=== PATIENT | male | born 1955 | race Caucasian/White ===

== ENCOUNTER 2016-10-19 19:41 | Emergency (ER) | payer BC ==
[~2016-10-19] VITALS: Ht 180.3 cm; Wt 95.0 kg
[~2016-10-19 19:41] MED LIST: ATOR10TA88 PO; LEVO112T18 PO
[2016-10-19 19:42] VITALS: TEMP 36.8; Ht 180.3 cm; Wt 95.0 kg
[2016-10-19] MEDS ORDERED: ACETAMINOPHEN 500 MG TAB PO STA (19:53)
[2016-10-19] MEDS ORDERED: SODIUM CHLORIDE 0.9% 1000ML 1,000 ML IV STA (19:53)
--- NOTE | 2016-10-19 20:05 | EMERGENCY ROOM VISIT NOTE ---
History Report prepared by Larisaiberis: Sherlyn Gregory Under the Supervision of: Dr. Nayan Desir M.D. First contact with patient: 19:49 Chief Complaint: BACK PAIN Stated Complaint: BACK PAIN FROM FALL History of Present Illness The patient is a 61 year old male who presents to the Emergency Room with complaints of worsening back pain for the past 2 days. He is accompanied by his . He reports he was on a latter 2 days ago while painting when he slipped on tape, and fell off, landing against a 6 inch long banister in a stairwell, and then rolling onto the floor. He thinks he fell about 4 feet during his final fall and injured the lower right side of his back and flank area. His was able to help him get up after the incident and he iced his back, then felt good enough to keep painting. He has been taking Ibuprofen for his pain as needed. The patient does admit to some pain with inspiration. He denies any recent hematuria. Earlier today, he was trying to pick something up, and his pain worsened, so he came to the ED. Movement worsens his discomfort. He denies any difficulties urinating or incontinence of bowel or bladder. He denies any neck pain or abdominal pain. He has experienced no swelling to his legs, but does have a bruise on one of his legs from the fall, he cannot remember which. Source of History: patient Onset: 2 days HEAVY REPAIRER Position: back (right lower back) Timing: worsening Modifying Factors (Worsening): movement Modifying Factors (Relieving): ibuprofen Associated Symptoms: No neck pain, No abdominal pain, No urinary symptoms Review of Systems See HPI for pertinent positives and negatives. A total of ten systems were reviewed and were otherwise negative. Past Medical & Surgical Medical Problems: (1) Hyperlipidemia (2) Hypothyroidism Surgical Problems: (1) History of knee surgery (2) Hx of inguinal hernia surgery Social History Smoking Status: Never Smoker Alcohol Use: occasionally Drug Use: none Marital Status: Housing Status: lives with family Occupation Status: employed Current/Historical Medications Scheduled Levothyroxine Sodium (Levothyroxine Sodium), 150 MCG PO DAILY Scheduled PRN Ibuprofen (Ibuprofen), 200 MG PO UD PRN for Pain Ibuprofen (Ibuprofen), 600 MG PO TID PRN for Pain Allergies Coded Allergies: No Known Allergies (Verified Allergy, Unknown, 11/06/04) Physical Exam Vital Signs Date Time Temp Pulse Resp B/P (MAP) Pulse Ox O2 Delivery O2 Flow Rate FiO2 10/20/16 00:22 53 18 156/87 97 10/19/16 22:04 56 20 139/82 96 Room Air 10/19/16 19:42 36.8 64 16 157/89 96 Room Air Physical Exam GENERAL: Awake, alert, well-appearing, in no distress HENT: Normocephalic, atraumatic. Oropharynx unremarkable. EYES: Normal conjunctiva. Sclera non-icteric. NECK: Supple. No nuchal rigidity. FROM. No JVD. RESPIRATORY: Clear to auscultation. CARDIAC: Regular rate, normal rhythm. Extremities warm and well perfused. Pulses equal. ABDOMEN: Soft, non-distended. No tenderness to palpation. No rebound or guarding. No masses. RECTAL: Deferred. MUSCULOSKELETAL: Palpation of right anterior chest wall reproduces posterior pain. The back is symmetrical on inspection without obvious abnormality. Right sided CVA and flank tenderness with ecchymosis and hematoma. No joint edema. LOWER EXTREMITIES: Calves are equal size bilaterally and non-tender. No edema. No discoloration. NEURO: Normal sensorium. No sensory or motor deficits noted. SKIN: No rash or jaundice noted. Medical Decision & Procedures ER Provider Diagnostic Interpretation: Radiology results as stated below per my review and radiologist interpretation: CT CHEST With Contrast: No pneumothorax. Lungs are clear aside from subsegmental atelectasis at lung bases.. No pleural effusions. CV structures are unremarkable. Osseous structures are intact. CT ABDOMEN & PELVIS: No free air. No free fluid. No evidence of solid organ injury. No pelvic or femoral neck fractures. Prostate focally invaginates into the base the bladder. Mild increased density in right posterior lateral abdominal wall fat, compatible with contusional injury. CT L SPINE: No acute fracture or subluxation. Mild degenerative changes. Bridging osteophytes of right sacroiliac joint. Radiologist: Omari Chery MD Laboratory Results 10/19/16 20:25 Red Blood Count 4.87, Mean Corpuscular Volume 93.2, Mean Corpuscular Hemoglobin 31.0, Mean Corpuscular Hemoglobin Concent 33.3, Mean Platelet Volume 9.1, Neutrophils (%) (Auto) 68.1, Lymphocytes (%) (Auto) 16.3, Monocytes (%) (Auto) 13.4, Eosinophils (%) (Auto) 1.7, Basophils (%) (Auto) 0.4, Neutrophils # (Auto ) 5.21, Lymphocytes # (Auto) 1.25, Monocytes # (Auto) 1.03, Eosinophils # (Auto ) 0.13, Basophils # (Auto) 0.03 10/19/16 20:25 Test 10/19/16 20:25 10/19/16 22:05 White Blood Count 7.66 K/uL (4.8-10.8) Red Blood Count 4.87 M/uL (4.7-6.1) Hemoglobin 15.1 g/dL (14.0-18.0) Hematocrit 45.4 % (42-52) Mean Corpuscular Volume 93.2 fL (80-100) Mean Corpuscular Hemoglobin 31.0 pg (25-34) Mean Corpuscular Hemoglobin Concent 33.3 g/dl (32-36) Platelet Count 243 K/uL (130-400) Mean Platelet Volume 9.1 fL (7.4-10.4) Neutrophils (%) (Auto) 68.1 % Lymphocytes (%) (Auto) 16.3 % Monocytes (%) (Auto) 13.4 % Eosinophils (%) (Auto) 1.7 % Basophils (%) (Auto) 0.4 % Neutrophils # (Auto) 5.21 K/uL (1.4-6.5) Lymphocytes # (Auto) 1.25 K/uL (1.2-3.4) Monocytes # (Auto) 1.03 K/uL (0.11-0.59) Eosinophils # (Auto) 0.13 K/uL (0-0.5) Basophils # (Auto) 0.03 K/uL (0-0.2) RDW Standard Deviation 45.3 fL (36.4-46.3) RDW Coefficient of Variation 13.3 % (11.5-14.5) Immature Granulocyte % (Auto) 0.1 % Immature Granulocyte # (Auto) 0.01 K/uL (0.00-0.02) Anion Gap 7.0 mmol/L (3-11) Est Creatinine Clear Calc Drug Dose 68.4 ml/min Estimated GFR () 67.3 Estimated GFR (Non- 58.1 BUN/Creatinine Ratio 15.0 (10-20) Calcium Level 9.4 mg/dl (8.5-10.1) Urine Color YELLOW Urine Appearance CLOUDY (CLEAR) Urine pH 5.5 (4.5-7.5) Urine Specific [place] 1.013 (1.000-1.030) Urine Protein NEG (NEG) Urine Glucose (UA) NEG (NEG) Urine Ketones NEG (NEG) Urine Occult Blood NEG (NEG) Urine Nitrite NEG (NEG) Urine Bilirubin NEG (NEG) Urine Urobilinogen NEG (NEG) Urine Leukocyte Esterase NEG (NEG) Urine WBC (Auto) 1-5 /hpf (0-5) Urine RBC (Auto) 0-4 /hpf (0-4) Urine Hyaline Casts (Auto) 0 /lpf (0-5) Urine Epithelial Cells (Auto) 0-5 /lpf (0-5) Urine Bacteria (Auto) NEG (NEG) Laboratory results reviewed by me Medications Administered Medications (Trade) Dose Ordered Sig/Kay Route Start Time Stop Time Status Last Admin Dose Admin Sodium Chloride 1,000 ml @ 999 mls/hr Q1H1M STAT IV 10/19/16 19:53 10/19/16 20:53 DC 10/19/16 20:23 999 MLS/HR Acetaminophen (Tylenol Tab) 1,000 mg NOW STAT PO 10/19/16 19:53 10/19/16 20:03 DC 10/19/16 20:23 1,000 MG Oxycodone HCl (Roxicodone Immediate Rel Tab) 5 mg NOW STAT PO 10/19/16 21:56 10/19/16 21:57 DC 10/19/16 22:05 5 MG ED Course 1950: The patient was evaluated in room B6. A complete history and physical exam was performed. 1952: Acetaminophen 1000 mg PO, NSS 1000 ml @ 999 mls/hr IV. 2155: Oxycodone HCl 5 mg PO. 2199: Nursing informed me the patient was unable to make it to CT scan because of pain. 0005: I reevaluated the patient. He is feeling better. I discussed his results and discharge instructions and he verbalized complete understanding and agreement. Medical Decision I reviewed the patient's past medical history, medications, and the nursing notes as described above. The differential diagnoses considered include multiple rib fractures, pulmonary contusion, renal contusion, retroperitoneal hematoma, soft tissue injury, contusion or hematoma. Patient is a 61-year-old gentleman presents emergency Department with right lower back and flank pain with bruising after a fall 2 days ago from a ladder onto a rail per history of present illness. I will patient appears uncomfortable but in no acute distress. He is afebrile with stable vital signs. Exam the patient has ecchymosis and hematoma to the right flank with tenderness to palpation throughout the right posterior ribs and CVA. Additionally palpation of the right anterior chest wall reproduces posterior pain concerning for rib fractures. Additionally while patient denies any hematuria location of hematoma could be concerning for renal injury as well. Thus we will evaluate with CT scan and labs. Otherwise no lower extremity weakness denies urinary retention or bowel incontinence. Labs unremarkable including a UA negative for hematuria. Stat read preliminary reads of CT scan do not show any fractures or solid organ injury, rather showed soft tissue contusion to the right flank. Findings discussed with patient and plan for analgesia as well as incentive spirometer. Patient agreeable with plan and was discharged per instructions. Medication Reconcilliation Current Medication List: was personally reviewed by me Blood Pressure Screening Patient's blood pressure: Elevated blood pressure Blood pressure disposition: Elevated BP felt to be situational Impression Primary Impression: Contusion Scribe Attestation The scribe's documentation has been prepared under my direction and personally reviewed by me in its entirety. I confirm that the note above accurately reflects all work, treatment, procedures, and medical decision making performed by me. Departure Information Dispostion Home / Self-Care Referrals No Doctor, Assigned (PCP) Patient Instructions ED Contusion Back, My [facility] Additional Instructions Please follow up with your primary care physician in the next 1-3 days for reevaluation. Otherwise, your exam, lab results, and CT scan did not show signs of an emergent condition at this time. Take ibuprofen and Tylenol as needed for pain. Heating pad at 20 minute intervals for additional muscle relaxation. Incentive spirometer 10 x per hour throughout the day. Return to the emergency department for worsening symptoms as described in the accompanying instructions. Work Instructions Specific Date: 10/24/2016
[2016-10-19] MEDS ORDERED: MTR/600 PO (20:13)
[2016-10-19] MEDS ORDERED: LEVO150T9 PO (20:13)
[2016-10-19] MEDS ORDERED: IBUP-1105 PO (20:13)
[2016-10-19] MEDS ORDERED: OPTIRAY 320 IV PRN (20:15)
[2016-10-19 20:35] LABS: BASO % 0.4 %; BASO ABS # 0.03 K/uL (0-0.2); COMPLETE YES; EOS % 1.7 %; HEMATOCRIT 45.4 % (42-52); IG% 0.1 %; LYMPH % 16.3 %; LYMPH ABS # 1.25 K/uL (1.2-3.4); MEAN CELL VOLUME 93.2 fL (80-100); MEAN CORPUSCULAR HGB CONC 33.3 g/dl (32-36); MEAN PLATELET VOLUME 9.1 fL (7.4-10.4); MONO % 13.4 %; NEUT % 68.1 %; PLATELET COUNT 243 K/uL (130-400); RED BLOOD COUNT 4.87 M/uL (4.7-6.1); WHITE BLOOD COUNT 7.66 K/uL (4.8-10.8)
[2016-10-19 20:51] LABS: CALCIUM 9.4 mg/dl (8.5-10.1); CREATININE 1.3 mg/dl (0.60-1.40)
[2016-10-19] MEDS ORDERED: OXYCODONE HCL IR 5 MG TAB (IMMEDIATE RELEASE) PO STA (21:56)
[2016-10-19 22:22] LABS: URINE APPEARANCE CLOUDY (CLEAR); URINE BILIRUBIN NEG (NEG); URINE COLOR YELLOW; URINE EPITHELIAL CELL AUTO 0-5 /lpf (0-5); URINE NITRITE NEG (NEG); URINE PH 5.5 (4.5-7.5); URINE SPECIFIC GRAVITY 1.013 (1.000-1.030); UROBILINOGEN NEG (NEG); ZZUR CULT IF INDIC CLEAN CATCH NO
[2016-10-19 22:28] LABS: MANUAL MICROSCOPIC REQUIRED? NO; REVIEW REQ? NO
[2016-10-20 00:22] VITALS: BP 156/87; PULSE 53; O2SAT 97
--- NOTE | 2016-10-20 07:17 | DIAGNOSTIC IMAGING REPORT ---
CT SCAN OF THE LUMBAR SPINE WITHOUT IV CONTRAST CLINICAL HISTORY: Fall with back pain. COMPARISON STUDY: No priors. TECHNIQUE: CT scan of the lumbar spine is performed from the lower thoracic spine to the sacrum. Images are reviewed in the axial, sagittal, and coronal planes. IV contrast was not administered specifically for this examination. There is IV contrast present from the concurrently performed abdominal CT. A dose lowering technique was utilized adhering to the principles of ALARA. CT DOSE: 1063.09 mGy.cm FINDINGS: The skeletal structures are well mineralized. There is no evidence of fracture or malalignment involving the lumbar spine. Vertebral body height and alignment are maintained. The transverse and spinous processes are intact. There is no evidence of spondylolysis. No lytic or blastic lesions are seen. Tiny anterior osteophytes are seen throughout. The intervertebral disc spaces are preserved. There is no evidence of large disc herniation or significant acquired compromise of the central canal as seen by CT. The visualized sacrum and bony pelvis appear intact. Mild degenerative change and spurring is noted at the sacroiliac joints. There is a nondistracted right posterior 11th rib fracture. The paraspinous soft tissues are within normal limits. There is mild atherosclerotic calcification of the abdominal aorta. No retroperitoneal lymphadenopathy is seen. IMPRESSION: 1. There is no evidence of fracture or subluxation involving the lumbar spine. 2. There is an acute nondistracted right posterior 11th rib fracture Electronically signed by: Solo Murphy M.D. 10/20/2016 7:15 AM Dictated Date/Time: 10/20/2016 7:11 AM
--- NOTE | 2016-10-20 07:34 | DIAGNOSTIC IMAGING REPORT ---
CT OF THE CHEST WITH IV CONTRAST CLINICAL HISTORY: Fall - right flank pain/hematoma. COMPARISON STUDY: No previous studies for comparison. TECHNIQUE: Following IV administration of 92 mL of Optiray-320, helical axial images of the chest were obtained. Sagittal and coronal reconstructions were viewed as well as maximal intensity projections on an independent 3-D workstation. A dose lowering technique was utilized adhering to the principles of ALARA. FINDINGS: There are no findings to suggest traumatic injury to the thoracic aorta. Size of the heart is normal. There is no pericardial effusion. No enlarged thoracic lymph nodes are present. Central airways are patent. No pneumothorax or pulmonary contusion is present. There are acute nondisplaced fractures of the posterior right 11th and 12th ribs. Groundglass opacities reflect atelectasis. There is no acute thoracic spine fracture. IMPRESSION: 1. Acute nondisplaced fractures of the right 11th and 12th ribs. No pneumothorax. 2. No additional traumatic findings within the chest. Electronically signed by: Liban Cruz M.D. 10/20/2016 7:33 AM Dictated Date/Time: 10/20/2016 6:47 AM
--- NOTE | 2016-10-20 07:37 | DIAGNOSTIC IMAGING REPORT ---
ABDOMEN AND PELVIS CT WITH IV CONTRAST CT DOSE: HISTORY: Fall - right flank pain/hematoma TECHNIQUE: Multiaxial CT images of the abdomen and pelvis were performed following the use of intravenous contrast. A dose lowering technique was utilized adhering to the principles of ALARA. COMPARISON STUDY: None. FINDINGS: Mild dependent changes seen at the lung bases. No pneumoperitoneum. No pneumatosis. Nondisplaced right posterior 11th and 12th rib fractures. Subcutaneous fat stranding within the right flank consistent with a soft tissue contusion. No evidence for hematoma at this time. A few colonic diverticula. No bowel wall thickening or obstruction. Normal appendix. No retroperitoneal hematoma or lymphadenopathy. Bladder is unremarkable. Prostate gland protrudes into the bladder base. The liver, spleen, adrenal glands, pancreas, and right kidney are unremarkable. Small hypodensity within the lower pole the left kidney may represent an area of scarring. No hydronephrosis. IMPRESSION: 1. Nondisplaced right posterior 11th and 12th rib fractures. 2. Otherwise, no acute intra-abdominal abnormality. Electronically signed by: Dom Badillo M.D. 10/20/2016 7:36 AM Dictated Date/Time: 10/20/2016 7:28 AM
== END 2016-10-20 00:26 | disposition home or self-care (01) ==
LOC: C.EDB 19:43
DX: S30.0XXA Contusion of lower back and pelvis, initial encounter (principal); S30.1XXA Contusion of abdominal wall, initial encounter; W01.0XXA Fall on same level from slipping, tripping and stumbling without subsequent striking against object, initial encounter; E78.5 Hyperlipidemia, unspecified; E03.9 Hypothyroidism, unspecified; Z96.659 Presence of unspecified artificial knee joint; Z79.899 Other long term (current) drug therapy

== ENCOUNTER 2021-09-28 16:05 | Inpatient (IN) ==
[2021-09-28] MEDS ORDERED: SODIUM CHLORIDE 0.9% 1000ML 1,000 ML IV ONE (16:28)
--- NOTE | 2021-09-28 16:30 | Emergency Department Note ---
Impression & Plan Acute kidney injury, Hydronephrosis, Abdominal pain ED Provider Note NAME: TWYLA NAVAS AGE: 66 SEX: M : 1955 ARRIVES VIA: Walk-In INFORMANT: Patient ED PROVIDER(S): Link Hughes DO CHIEF COMPLAINT: abdominal pain HPI: Patient is a 66-year-old male who presents to the ER from the left lower quadrant abdominal pain. He notes that he has been having this for the past 3 months. Had nausea with it today as he had very severe pain. Lasted for about 20 minutes. He became very diaphoretic and felt like he was going to pass out. No chest pain or shortness of breath. No dysuria, urgency, or frequency. Pain is worse with eating. No other exacerbating or remitting factors. Normally a crampy sharp pain. Pain is currently 0 out of 10. Only previous abdominal surgery includes placement of mesh ROS: See above HPI for pertinent positives & negatives. A total of 10 systems reviewed and were otherwise negative. PAST MEDICAL HISTORY:See Below PAST SURGICAL HISTORY:See Below FAMILY HISTORY:See Below SOCIAL HISTORY:See Below HOME MEDICATIONS:See Below ALLERGIES:See Below VITALS:See Below PHYSICAL EXAMINATION: GENERAL: Sitting up in bed, alert, well appearing, well nourished, no distress, non-toxic EYE EXAM: normal conjunctiva. OROPHARYNX: no exudate, no erythema, lips, buccal mucosa, and tongue normal and mucous membranes are moist NECK: supple, no nuchal rigidity, no adenopathy, non-tender LUNGS: Clear to auscultation. Normal chest wall mechanics HEART: no murmurs, S1 normal and S2 normal ABDOMEN: abdomen soft, non-tender, normo-active bowel sounds, no masses, no rebound or guarding. UPPER EXTREMITIES: upper extremities are grossly normal. LOWER EXTREMITIES: No pitting edema. NEURO EXAM: Normal sensorium, cranial nerves II-XII grossly intact, normal speech, no gross weakness of arms, no gross weakness of legs. MEDICAL DECISION MAKING: Patient is a 66-year-old male who presents ER for the above-stated complaint. IV was established blood was obtained. Labs show no significant leukocytosis or anemia. BMP with a creatinine of 4.6 up from a baseline of 1. CO2 slightly low at 20 which I do favor is likely secondary to uremia. LFTs bilirubin and lipase was unremarkable. UA with white cells and leuks but contaminated with epithelial cells. COVID was negative. Conner was inserted and he had a large amount of urine output. CT abdomen pelvis was unremarkable. Was given IV fluids discussed with hospitalist admitted for acute kidney injury secondary to urinary retention. Triage Nursing notes reviewed. Limited review of prior medical records performed Vital Signs: reviewed and remarkable for hypertensive, bradycardic Differential diagnosis: Differential diagnoses includes but is not limited to gastritis, peptic ulcer disease, GERD, gallbladder disease, pancreatitis, small bowel obstruction, acute coronary syndrome, pericarditis, ischemic bowel, irritable bowel disease, irritable bowel syndrome, appendicitis, diverticulitis, malignancy, hernia, urinary tract infection, torsion, perforation, trauma, infectious. ER treatment provided: See below Diagnostics interpreted by me: ECG: none Cardiac Monitoring: An order was placed for continuous cardiac monitoring. The monitor shows a rate of 68 with sinus rhythm. Laboratory studies: As stated above and show below. Imaging studies: CT Abdomen pelvis as described above Consultation(s): To the hospitalist for further evaluation Procedures: none Critical Care: None Past Med/Surg History Medical History Hyperlipidemia Hypothyroidism Surgical History H/O inguinal hernia repair Family History Other Heart disease Stroke Social History Smoking Status: Never smoker Hx Alcohol Use: No Hx Substance Use: No Preferred Language: Maori Feels Safe at Home: Yes Allergies Allergies Allergy/AdvReac Type Severity Reaction Status Date / Time No Known Allergies Allergy Unknown Verified 11/06/04 19:57 Home Meds Home Medications Medication Instructions Recorded Confirmed levothyroxine 137 mcg tablet 137 mcg PO DAILY 09/28/21 09/28/21 Results & Data (ED) Vital Signs Vital Signs - 24 hr 09/28/21 16:08 09/28/21 16:05 09/28/21 16:19 Temperature 36.1 C L Temperature Source Temporal Artery Scan Pulse Rate 48 L 49 L Pulse Rate [Apical] 52 L Pulse Rhythm Regular Pulse Strength Normal Respiratory Rate 16 16 Respiratory Effort / Characteristics Non-Labored Spontaneous Respiratory Depth Normal Blood Pressure 186/79 H Blood Pressure [Left Arm] 169/101 H Blood Pressure Mean 114 Blood Pressure Mean [Left Arm] 123 Pulse Oximetry 100 97 97 Oxygen Delivery Method Room Air Sepsis Recent Fever Within 48 Hours No Sepsis New/Unexplained Change in Mental Status No Sepsis Action Taken by Nursing No Action Required 09/28/21 17:00 09/28/21 19:01 Temperature Temperature Source Pulse Rate 50 L Pulse Rate [Apical] 63 Pulse Rhythm Pulse Strength Respiratory Rate 14 18 Respiratory Effort / Characteristics Respiratory Depth Blood Pressure 177/74 H Blood Pressure [Left Arm] 185/106 H Blood Pressure Mean 108 Blood Pressure Mean [Left Arm] 132 Pulse Oximetry 97 99 Oxygen Delivery Method Room Air Sepsis Recent Fever Within 48 Hours Sepsis New/Unexplained Change in Mental Status Sepsis Action Taken by Nursing Laboratory Data Result diagrams: 09/28/21 16:24 09/28/21 16:24 Lab Results 09/28/21 09/28/21 09/28/21 Range/Units 16:24 16:24 16:34 WBC 5.04 (4.8-10.8) K/ul RBC 3.91 L (4.63-6.08) M/uL Hgb 11.5 L (14.0-18.0) g/dl Hct 37.5 L (40.1-51.0) % MCV 95.9 (80.0-100.0) fL MCH 29.4 (25.0-34.0) pg MCHC 30.7 L (32.0-36.0) g/dL RDW Std Deviation 50.4 H (36.4-46.3) fL RDW Coeff of Shine 14.3 (11.5-14.5) % Plt Count 265 (130-400) K/uL MPV 9.0 L (9.4-12.4) fL Immature Gran % (Auto) 0.4 % Neut % (Auto) 59.3 % Lymph % (Auto) 25.0 % [place] % (Auto) 11.9 % Eos % (Auto) 2.6 % Baso % (Auto) 0.8 % Neut # (Auto) 2.99 (1.4-6.5) K/uL Lymph # (Auto) 1.26 (1.2-3.4) K/uL [place] # (Auto) 0.60 (0.24-0.82) K/uL Eos # (Auto) 0.13 (0-0.50) K/uL Baso # (Auto) 0.04 (0-0.2) K/uL Immature Gran # (Auto) 0.02 (0.00-0.02) K/uL Sodium 139 (136-145) mmol/L Potassium 4.5 (3.5-5.1) mmol/L Chloride 111 H (98-107) mmol/L Carbon Dioxide 20 L (21-32) mmol/L Anion Gap 8 (3-11) BUN 62 H (6-23) mg/dl Creatinine 4.63 H* (0.6-1.4) mg/dl Est Cr Clr Drug Dosing 16.8 ml/min Est GFR ( Amer) 14.0 ml/min Est GFR (Non-Af Amer) 12.1 ml/min BUN/Creatinine Ratio 13.4 (10-20) Glucose 114 H (70-99(Fasting)) mg/dl Calcium 8.9 (8.5-10.1) mg/dl Total Bilirubin 0.5 (0.2-1.0) mg/dl AST 16 (13-39) U/L ALT 9 (7-52) U/L Alkaline Phosphatase 45 (34-104) U/L Total Protein 7.7 (6.0-8.3) gm/dl Albumin 4.3 (3.4-5.0) gm/dl Globulin 3.4 (2.5-4.0) gm/dl Albumin/Globulin Ratio 1.3 (0.9-2) Lipase 56 (11-82) U/L Urine Color Yellow Urine Appearance Clear (Clear) Urine pH 5.5 (4.5-7.5) Ur Specific [place] 1.010 (1.000-1.030) Urine Protein Negative (Negative) Urine Glucose (UA) Negative (Negative) Urine Ketones Negative (Negative) Urine Blood Negative (Negative) Urine Nitrite Negative (Negative) Urine Bilirubin Negative (Negative) Urine Urobilinogen Negative (Negative) Ur Leukocyte Esterase 1+ H (Negative) Urine WBC (Auto) 10-30 H (0-5) /hpf Urine RBC (Auto) 0-4 (0-4) /hpf U Hyaline Cast (Auto) 1-5 (0-5) /lpf U Epithel Cells (Auto) 10-20 H (0-5) /lpf Urine Bacteria (Auto) Negative (Negative) SARS-CoV-2, RNA, NAAT (NEGATIVE) 09/28/21 Range/Units 19:35 WBC (4.8-10.8) K/ul RBC (4.63-6.08) M/uL Hgb (14.0-18.0) g/dl Hct (40.1-51.0) % MCV (80.0-100.0) fL MCH (25.0-34.0) pg MCHC (32.0-36.0) g/dL RDW Std Deviation (36.4-46.3) fL RDW Coeff of Shine (11.5-14.5) % Plt Count (130-400) K/uL MPV (9.4-12.4) fL Immature Gran % (Auto) % Neut % (Auto) % Lymph % (Auto) % [place] % (Auto) % Eos % (Auto) % Baso % (Auto) % Neut # (Auto) (1.4-6.5) K/uL Lymph # (Auto) (1.2-3.4) K/uL [place] # (Auto) (0.24-0.82) K/uL Eos # (Auto) (0-0.50) K/uL Baso # (Auto) (0-0.2) K/uL Immature Gran # (Auto) (0.00-0.02) K/uL Sodium (136-145) mmol/L Potassium (3.5-5.1) mmol/L Chloride (98-107) mmol/L Carbon Dioxide (21-32) mmol/L Anion Gap (3-11) BUN (6-23) mg/dl Creatinine (0.6-1.4) mg/dl Est Cr Clr Drug Dosing ml/min Est GFR ( Amer) ml/min Est GFR (Non-Af Amer) ml/min BUN/Creatinine Ratio (10-20) Glucose (70-99(Fasting)) mg/dl Calcium (8.5-10.1) mg/dl Total Bilirubin (0.2-1.0) mg/dl AST (13-39) U/L ALT (7-52) U/L Alkaline Phosphatase (34-104) U/L Total Protein (6.0-8.3) gm/dl Albumin (3.4-5.0) gm/dl Globulin (2.5-4.0) gm/dl Albumin/Globulin Ratio (0.9-2) Lipase (11-82) U/L Urine Color Urine Appearance (Clear) Urine pH (4.5-7.5) Ur Specific [place] (1.000-1.030) Urine Protein (Negative) Urine Glucose (UA) (Negative) Urine Ketones (Negative) Urine Blood (Negative) Urine Nitrite (Negative) Urine Bilirubin (Negative) Urine Urobilinogen (Negative) Ur Leukocyte Esterase (Negative) Urine WBC (Auto) (0-5) /hpf Urine RBC (Auto) (0-4) /hpf U Hyaline Cast (Auto) (0-5) /lpf U Epithel Cells (Auto) (0-5) /lpf Urine Bacteria (Auto) (Negative) SARS-CoV-2, RNA, NAAT NEGATIVE (NEGATIVE) Administered Medications Discontinued Medications Sodium Chloride (Nss 1000ml) 1,000 mls @ 999 mls/hr IV .[id number] ONE Stop: 09/28/21 17:28 Last Infusion: 09/28/21 17:49 Dose: 0 mls/hr Documented By: Admin: 09/28/21 16:47 Dose: 999 mls/hr Documented By: SUSAN Lorazepam (Lorazepam 1 Mg Tab) 1 mg SL NOW STA Stop: 09/28/21 18:31 Last Admin: 09/28/21 18:57 Dose: Not Given Documented By: SW Imaging Data Radiologist's Impression: Abdomen/Pelvis CT 09/28/21 17:26 CT abd pelvis wo con CLINICAL HISTORY: abd pain COMPARISON STUDY: 10/19/2016 CT DOSE: 414.78 mGy.cm TECHNIQUE: Standard CT of the Abdomen and Pelvis was performed without IV contrast. The patient did not receive oral contrast. A dose lowering technique was utilized adhering to the principles of ALARA. FINDINGS: Lung base: The lung bases are clear. Abdominal cavity: There is no evidence for abdominal mass, adenopathy or ascites. Liver: The liver is homogeneous in attenuation on these limited noncontrast im ages.. Spleen: The spleen is homogeneous in attenuation on these limited noncontrast images. Pancreas: The pancreas is homogeneous in attenuation on these limited noncontrast images. Gall Bladder: The gallbladder is well distended with no evidence for cholelithiasis, wall thickening or pericholecystic edema.. Adrenal glands: The adrenal glands are normal in size and attenuation on these limited noncontrast images. Kidneys: There is renal cortical atrophy present bilaterally. There is mild to moderate bilateral hydronephrosis and hydroureter with no evidence for renal or ureteral calculi. This most likely physiologic with distention of the urinary bladder present. Bowel: The bowel loops are normally placed within the abdomen and pelvis without evidence for dilatation or obstruction. There is no evidence for mass lesion. There is mild sigmoid diverticulosis without evidence for diverticulitis. There are no inflammatory changes present. There is no evidence for free air. There is a normal appendix in the right lower quadrant. Bladder: There is distention of the urinary bladder with no evidence for focal bladder wall thickening, calculus or diverticulum. : There is no evidence for pelvic mass or adenopathy. The prostate is mildly to moderately enlarged encroachment upon the floor the bladder. Vasculature: There is no evidence for focal aneurysmal dilatation of the abdominal aorta. Atherosclerotic calcification is present. Osseous structures: There is no acute osseous pathology. Degenerative changes are seen within the spine. IMPRESSION: 1. Bilateral renal cortical atrophy with mild to moderate hydronephrosis and hydroureter bilaterally. This is most likely chronic and physiologic in nature due to distention of the urinary bladder. There are no renal, ureteral or bladder calculi 2. No other evidence for acute intra-abdominal or pelvic abnormality on these limited noncontrast images. 3. Additional nonacute findings are delineated above. ACT 112: Negative or not required by law. Electronically signed by: Sharif Will M.D. 09/28/2021 6:05 PM Discharge Plan Visit Data Chief Complaint: Abdominal Pain Stated Complaint: LLQ ABDOM PAIN ED Provider: Link Hughes Discharge Problem: Acute kidney injury, Hydronephrosis, Abdominal pain Forms Stand Alone Forms: [employer] Prescriptions Prescriptions: No Action levothyroxine 137 mcg tablet 137 mcg PO DAILY Referrals Referrals: Amauri Oakes MD [Primary Care Provider] -
[2021-09-28 16:58] LABS: Basophils # (auto) 0.04 K/uL (0-0.2); Basophils % (auto) 0.8 %; Eosinophils # (auto) 0.13 K/uL (0-0.50); Eosinophils % (auto) 2.6 %; Hematocrit (blood only) 37.5 % (40.1-51.0); Hemoglobin 11.5 g/dl (14.0-18.0); Immature Granulocytes # (auto) 0.02 K/uL (0.00-0.02); Immature Granulocytes % (auto) 0.4 %; Lymphocytes # (auto) 1.26 K/uL (1.2-3.4); Mean Corpuscular Hemoglobin 29.4 pg (25.0-34.0); Mean Corpuscular Hgb Conc 30.7 g/dL (32.0-36.0); Mean Corpuscular Volume 95.9 fL (80.0-100.0); Monocytes % (auto) 11.9 %; Neutrophils # (auto) 2.99 K/uL (1.4-6.5); Neutrophils % (auto) 59.3 %; Platelet Count 265 K/uL (130-400); RDW Coefficient of Variation 14.3 % (11.5-14.5); RDW Standard Deviation 50.4 fL (36.4-46.3); Red Blood Count 3.91 M/uL (4.63-6.08); White Blood Count 5.04 K/ul (4.8-10.8)
[2021-09-28 17:05] LABS: Appearance Urine Clear (Clear); Bacteria Urine Automated Negative (Negative); Bilirubin Urine Negative (Negative); Blood Urine Negative (Negative); Color Urine Yellow; Glucose Urine UA Negative (Negative); Ketones Urine Negative (Negative); Leukocyte Esterase Urine 1+ (Negative); Nitrite Urine Negative (Negative); Protein Urine Negative (Negative); RBC Urine Automated 0-4 /hpf (0-4); Urobilinogen Urine Negative (Negative); pH Urine 5.5 (4.5-7.5)
[2021-09-28 17:26] LABS: Albumin Globulin Ratio 1.3 (0.9-2); Albumin Level 4.3 gm/dl (3.4-5.0); BUN Creatinine Ratio 13.4 (10-20); Bilirubin,Total 0.5 mg/dl (0.2-1.0); Calcium 8.9 mg/dl (8.5-10.1); Creatinine Clr Calc Pharmacy 16.8 ml/min; Est GFR (Non-African American) 12.1 ml/min; Globulin 3.4 gm/dl (2.5-4.0); Potassium 4.5 mmol/L (3.5-5.1); Total Protein 7.7 gm/dl (6.0-8.3)
--- NOTE | 2021-09-28 18:07 | CT Scan Report ---
CT abd pelvis wo con CLINICAL HISTORY: abd pain COMPARISON STUDY: 10/19/2016 CT DOSE: 414.78 mGy.cm TECHNIQUE: Standard CT of the Abdomen and Pelvis was performed without IV contrast. The patient did not receive oral contrast. A dose lowering technique was utilized adhering to the principles of JEFF Almazan FINDINGS: Lung base: The lung bases are clear. Abdominal cavity: There is no evidence for abdominal mass, adenopathy or ascites. Liver: The liver is homogeneous in attenuation on these limited noncontrast images.. Spleen: The spleen is homogeneous in attenuation on these limited noncontrast images. Pancreas: The pancreas is homogeneous in attenuation on these limited noncontrast images. Gall Bladder: The gallbladder is well distended with no evidence for cholelithiasis, wall thickening or pericholecystic edema.. Adrenal glands: The adrenal glands are normal in size and attenuation on these limited noncontrast im ages. Kidneys: There is renal cortical atrophy present bilaterally. There is mild to moderate bilateral hyd ronephrosis and hydroureter with no evidence for renal or ureteral calculi. This most likely physiolo gic with distention of the urinary bladder present. Bowel: The bowel loops are normally placed within the abdomen and pelvis without evidence for dilatat ion or obstruction. There is no evidence for mass lesion. There is mild sigmoid diverticulosis withou t evidence for diverticulitis. There are no inflammatory changes present. There is no evidence for fr ee air. There is a normal appendix in the right lower quadrant. Bladder: There is distention of the urinary bladder with no evidence for focal bladder wall thickenin g, calculus or diverticulum. : There is no evidence for pelvic mass or adenopathy. The prostate is mildly to moderately enlarged encroachment upon the floor the bladder. Vasculature: There is no evidence for focal aneurysmal dilatation of the abdominal aorta. Atheroscler otic calcification is present. Osseous structures: There is no acute osseous pathology. Degenerative changes are seen within the spi ne. IMPRESSION: 1. Bilateral renal cortical atrophy with mild to moderate hydronephrosis and hydroureter bilaterally. This is most likely chronic and physiologic in nature due to distention of the urinary bladder. Ther e are no renal, ureteral or bladder calculi 2. No other evidence for acute intra-abdominal or pelvic abnormality on these limited noncontrast faheem ges. 3. Additional nonacute findings are delineated above. ACT 112: Negative or not required by law. Electronically signed by: Sharif Will M.D. 09/28/2021 6:05 PM
[2021-09-28] MEDS ORDERED: LORazepam 1 MG TAB SL STA (18:30)
--- NOTE | 2021-09-28 18:57 | History & Physical Report ---
Date of Service September 28, 2021 Assessment & Plan (1) Acute kidney injury: (2) Hydronephrosis: (3) Abdominal pain: Plan: This is a 66-year-old male with PMH of hypothyroidism, hyperlipidemia, prediabetes, ZULMA and other medical problems listed below who presents with lower abdominal and groin pain over the past few days and was found to have FLORENTIN 2/[address] abd/pelvis with bilateral renal cortical atrophy with mild to moderate hydronephrosis and hydroureter bilaterally. This is most likely chronic and physiologic in nature due to distention of the urinary bladder. There are no renal, ureteral or bladder calculi Cr 4.63 (baseline ~1.3) FLORENTIN and hydronephrosis 2/2 bladder outlet obstruction from enlarged prostate gland Conner catheter in place, continue gentle IV fluids Per urology, may require urologic procedure such as a TURP once his renal function normalizes (4) Hypothyroidism: Plan: Continue levothyroxine (5) Hyperlipidemia: Plan: Diet controlled DVT Ppx: SCDs Code status: FULL PCP: [facility] Dispo: Admitted to med/tele Patient seen in collaboration with Dr. Arenas. Please see addendum. History of Present Illness Chief Complaint: Abdominal pain Primary Care Provider: Amauri Oakes MD This is a 66-year-old male with PMH of hypothyroidism, hyperlipidemia, prediabetes, ZULMA and other medical problems listed below who presents with lower abdominal and groin pain over the past few days. Endorses progressive pain in left lower abdomen radiating into groin that is exacerbated by movement and af ter eating. Thought he was having issues with the hernia and came to ED for further evaluation. He has had difficulty urinating over the past 1 to 2 years with increased frequency and urgency. Has never been seen by urologist. Endorses associated nausea with abdominal pain but no vomiting. Tried ibuprofen at home a few times without much relief. No fever, chills, congestion, headache, chest pain, shortness of breath, vomiting, dysuria, diarrhea or constipation. Only home medication patient is on is levothyroxine. PCP is Dr. Oakes. Allergies Allergy/AdvReac Type Severity Reaction Status Date / Time No Known Allergies Allergy Unknown Verified 11/06/04 19:57 Home Medications Medication Instructions Recorded Confirmed Type levothyroxine 137 mcg tablet 137 mcg PO DAILY 09/28/21 09/28/21 History Past Med/Surg History Medical History Hyperlipidemia Hypothyroidism Surgical History H/O inguinal hernia repair Family History Other Heart disease Stroke Social History Smoking Status: Never smoker Hx Alcohol Use: No Hx Substance Use: No Preferred Language: Somali Feels Safe at Home: Yes Review of Systems Review of Systems: At least ten systems reviewed and negative except as noted in the HPI. Physical Exam Physical Exam: General Appearance: WD/WN, vitals as above, NAD, sitting up in bed, pleasant, conversing easily Head: normocephalic, atraumatic Eyes: normal inspection, PERRL, conjunctivae normal, anicteric sclerae ENT: external ear and nose normal, oropharynx normal Neck: normal visual inspection, trachea midline, no thyromegaly Respiratory: normal respiratory effort, lungs clear to auscultation, no wheeze, rales, rhonchi. No accessory muscle use Cardiovascular: regular rate, rhythm, no murmur, normal peripheral pulses, no BLE edema. Vessels: no JVD Chest: normal inspection of chest Abdomen/GI: normal bowel sounds, soft,no hepatosplenomegaly : Conner catheter in place Extremities/Musculoskeletal: no cyanosis or clubbing, extremities motor strength 5/5 Neurologic: PERRL, EOMI, accommodation nl, no face palsy, no dysarthria, CN's II-XI intact bilaterally and moves all extremities Psychiatric: A+Ox3, euthymic affect Skin: no rashes, normal color, warm/dry Results & Data Results & Data ([facility]) Vital Signs (Past 12 Hours) Vital Signs Temp Pulse Pulse Resp BP BP Pulse Ox 09/28/21 17:00 50 L 14 177/74 H 97 09/28/21 16:19 49 L 97 09/28/21 16:05 52 L 16 169/101 H 97 09/28/21 16:08 36.1 C L 48 L 16 186/79 H 100 O2 Del Method 09/28/21 17:00 09/28/21 16:19 09/28/21 16:05 09/28/21 16:08 Room Air Laboratory Results Short CBC 09/28/21 Range/Units 16:24 WBC 5.04 (4.8-10.8) K/ul Hgb 11.5 L (14.0-18.0) g/dl Hct 37.5 L (40.1-51.0) % Plt Count 265 (130-400) K/uL BMP 09/28/21 16:24 Sodium 139 Potassium 4.5 Chloride 111 H Carbon Dioxide 20 L BUN 62 H Creatinine 4.63 H* Glucose 114 H Calcium 8.9 Liver Function 09/28/21 Range/Units 16:24 Total Bilirubin 0.5 (0.2-1.0) mg/dl AST 16 (13-39) U/L ALT 9 (7-52) U/L Alkaline Phosphatase 45 (34-104) U/L Albumin 4.3 (3.4-5.0) gm/dl Urine 09/28/21 Range/Units 16:34 Urine Color Yellow Urine Appearance Clear (Clear) Urine pH 5.5 (4.5-7.5) Ur Specific [place] 1.010 (1.000-1.030) Urine Protein Negative (Negative) Urine Glucose (UA) Negative (Negative) Diagnostic Findings Abdomen/Pelvis CT 09/28/21 17:26 CT abd pelvis wo con CLINICAL HISTORY: abd pain COMPARISON STUDY: 10/19/2016 CT DOSE: 414.78 mGy.cm TECHNIQUE: Standard CT of the Abdomen and Pelvis was performed without IV contrast. The patient did not receive oral contrast. A dose lowering technique was utilized adhering to the principles of ALARA. FINDINGS: Lung base: The lung bases are clear. Abdominal cavity: There is no evidence for abdominal mass, adenopathy or ascites. Liver: The liver is homogeneous in attenuation on these limited noncontrast images.. Spleen: The spleen is homogeneous in attenuation on these limited noncontrast images. Pancreas: The pancreas is homogeneous in attenuation on these limited noncontrast images. Gall Bladder: The gallbladder is well distended with no evidence for cholelithiasis, wall thickening or pericholecystic edema.. Adrenal glands: The adrenal glands are normal in size and attenuation on these limited noncontrast images. Kidneys: There is renal cortical atrophy present bilaterally. There is mild to moderate bilateral hydronephrosis and hydroureter with no evidence for renal or ureteral calculi. This most likely physiologic with distention of the urinary bladder present. Bowel: The bowel loops are normally placed within the abdomen and pelvis without evidence for dilatation or obstruction. There is no evidence for mass lesion. There is mild sigmoid diverticulosis without evidence for diverticulitis. There are no inflammatory changes present. There is no evidence for free air. There is a normal appendix in the right lower quadrant. Bladder: There is distention of the urinary bladder with no evidence for focal bladder wall thickening, calculus or diverticulum. : There is no evidence for pelvic mass or adenopathy. The prostate is mildly to moderately enlarged encroachment upon the floor the bladder. Vasculature: There is no evidence for focal aneurysmal dilatation of the abdominal aorta. Atherosclerotic calcification is present. Osseous structures: There is no acute osseous pathology. Degenerative changes are seen within the spine. IMPRESSION: 1. Bilateral renal cortical atrophy with mild to moderate hydronephrosis and hydroureter bilaterally. This is most likely chronic and physiologic in nature due to distention of the urinary bladder. There are no renal, ureteral or bladder calculi 2. No other evidence for acute intra-abdominal or pelvic abnormality on these limited noncontrast images. 3. Additional nonacute findings are delineated above. ACT 112: Negative or not required by law. Electronically signed by: Sharif Will M.D. 09/28/2021 6:05 PM Code Status & VTE Plan VTE Prophylaxis Plan VTE Prophylaxis will be ordered: Yes Supervising Physician Co-Signing Physician Notes please see communication note dated 09/28/21
--- NOTE | 2021-09-28 20:23 | Urology Consultation ---
Date of Consultation September 28, 2021 Assessment & Plan (1) Acute kidney injury: Patient is being made on the hospitalist service. We recommend proceeding as follows: I suspect the patient's acute kidney injury hydronephrosis is due to bladder outlet obstruction from enlarged prostate gland. Would recommend maintaining Conner catheter Recommend avoid nephrotoxins Follow serial labs I discussed with the patient that he may require urologic procedure such as a TURP once his renal function normalizes. Would recommend maintain the Conner catheter for the present time and following serial labs as stated above. Additional recommendations will based on his clinical course as it unfolds (2) Hydronephrosis: Supervising Physician Co-Signing Physician Notes I have discussed Mr. Nicolas's case with Arie Foster PA-C and agree with the above documentation. Overall clinical picture is suggestive of bladder outlet obstruction. This should be managed for now with Conner catheter in place. Would recommend to continue to follow creatinine and maintain Conner for approximately 1 week. At that point a voiding trial could be performed or he could potentially be taught CIC. He may need discussion of an outlet procedure, but this can be done in the urology office. If creatinine does not return to normal levels, could consider renal ultrasound after couple days to assess for any residual hydronephrosis. Urology will follow along. History of Present Illness History of Present Illness This is a 66-year-old male who presented to [facility] emergency department secondary to left groin pain. Patient notes that the pain was described as an ache/numbness in his left groin. He felt that this was related to a previous hernia repair he had had. He denies any nausea or vomiting. He denies any back or flank pain. He denies any fevers, shakes, or chills. He does note that he has had difficulty urinating for approximately 1 year. He describes urinary hesitancy along with a weak stream of urine. He also notes urine frequency as he voids and then approximately 5 to 15 minutes later he will have to void again. He specifically denies any hematuria or dysuria. Patient notes that he has never seen a urologist before. arrival to the emergency department the patient has had labs and imaging which independent reviewed. He was noted to have mild to moderate hydronephrosis bilaterally. His bladder was noted to be distended. He was noted to have mild to moderately enlarged prostate gland which was encroaching upon the floor of the bladder. Labs include a CBC were white blood cell count platelet count were normal. His hemoglobin and hematocrit are 11.5 and 37.5. Chemistry profile showed sodium and potassium are both normal. His BUN and creatinine were 62 and 4.6. Urinalysis did show 10-30 white blood cells per high-power field along with 1+ leukocyte Estrace. A COVID test was noted be negative. Since arrival to the emergency department the patient did have a Conner catheter placed where the patient was noted to have a brisk diuresis of clear urine. He did note some symptomatic relief with this modality. At the time of my interview he was in no distress. Allergies Allergy/AdvReac Type Severity Reaction Status Date / Time No Known Allergies Allergy Unknown Verified 11/06/04 19:57 Home Medications Medication Instructions Recorded Confirmed Type levothyroxine 137 mcg tablet 137 mcg PO DAILY 09/28/21 09/28/21 History Patient History Medical History Hyperlipidemia Hypothyroidism Surgical History H/O inguinal hernia repair Family History Other Heart disease Stroke Social History Smoking Status: Never smoker Hx Alcohol Use: No Hx Substance Use: No Preferred Language: Malay Feels Safe at Home: Yes Review of Systems Constitutional: no fever and no chills Eyes: + corrective lenses Ear, Nose, Mouth, Throat: no ear pain Respiratory: no cough Cardiovascular: no chest pain Gastrointestinal: no nausea and no vomiting Genitourinary: + as per Subjective / HPI Musculoskeletal: no back pain Integumentary: no rash Neurologic: no localized weakness Physical Exam Constitutional: well developed and well nourished; no acute distress Eyes: no conjunctival abnormality ENMT: Ears: no hearing impairment and no external ear abnormality Mouth: no oropharynx abnormality Neck: trachea midline Respiratory: normal respiratory effort; no respiratory distress and no labored breathing Cardiovascular: Rate/Rhythm: regular rate and regular rhythm Gastrointestinal (Abdomen): Soft, nonrigid, nontender, nondistended Musculoskeletal: No calf tenderness, no lower extremity edema Skin: no rashes Neurologic: moves all extremities Psychiatric: A+Ox3, euthymic affect Genitourinary: no CVA tenderness Conner catheter is in place draining clear urine Results & Data ([facility]) Vital Signs (Past 12 Hours) Vital Signs Temp Pulse Pulse Resp BP BP Pulse Ox 09/28/21 19:01 63 18 185/106 H 99 09/28/21 17:00 50 L 14 177/74 H 97 09/28/21 16:19 49 L 97 09/28/21 16:05 52 L 16 169/101 H 97 09/28/21 16:08 36.1 C L 48 L 16 186/79 H 100 O2 Del Method 09/28/21 19:01 Room Air 09/28/21 17:00 09/28/21 16:19 09/28/21 16:05 09/28/21 16:08 Room Air PG Care Time/CCT Total # of Minutes Spent Total Time Spent with Patient: Total time spent is greater than 50% in coordination of care (as documented) at patient's floor/unit and/or counseling patient: Coding Level of Care Code 60484 Inpt Consult Level 5 Diagnoses Acute kidney injury N17.9 Hydronephrosis N13.30
[2021-09-28] MEDS: SODIUM CHLORIDE 0.9% 1000ML 1,000 ML IV SCH (20:43)
--- NOTE | 2021-09-28 20:48 | Communication Note ---
Date of Service: September 28, 2021 Attending Addendum: care coordinated with HANNAH Strong, please refer to her notes for full details, I agree with her notes patient seen and examined, records reviewed by myself as well on exam, patient seen sitting up in bed, comfortable Conner catheter in place Denies fevers or chills, abdominal pain, nausea vomiting no other symptoms VS noted and reviewed oriented x3, not in distress, speaks in sentences with no effort nor accessory muscle use normal rate, regular rhythm, no murmurs clear breath sounds bilaterally non distended, soft, nontender, Conner catheter bag in place, draining yellow urine no bipedal edema, erythema, warmth no neuro deficits All labs noted and reviewed ASSESSMENT AND PLAN Obstructive uropathy likely secondary to prostatomegaly Creatinine 4.6, with a baseline of 1.3 Conner catheter placed Flomax started PSA ordered Urologist consulted Monitor BMP daily other diagnoses and plan of care as per HANNAH Strong's notes Jamal Arenas MD
[2021-09-28] MEDS ORDERED: POLYETHYLENE (MIRALAX) 17 GM PACK PO PRN (22:08)
[2021-09-28] MEDS ORDERED: ONDANSETRON INJ 2 MG/ML 2 ML VIAL IV PRN (22:08)
[2021-09-28] MEDS: ACETAMINOPHEN 325 MG TAB PO PRN (22:32)
[2021-09-28] MEDS: TAMSULOSIN HCL 0.4 MG CAP PO SCH (22:32)
[2021-09-29 06:22] LABS: Hematocrit (blood only) 32.7 % (40.1-51.0); Hemoglobin 10.2 g/dl (14.0-18.0); Mean Corpuscular Hemoglobin 29.7 pg (25.0-34.0); Mean Corpuscular Hgb Conc 31.2 g/dL (32.0-36.0); Mean Corpuscular Volume 95.3 fL (80.0-100.0); Mean Platelet Volume 9.1 fL (9.4-12.4); Platelet Count 211 K/uL (130-400); RDW Coefficient of Variation 14.3 % (11.5-14.5); Red Blood Count 3.43 M/uL (4.63-6.08); White Blood Count 6.06 K/ul (4.8-10.8)
[2021-09-29] MEDS: SODIUM CHLORIDE 0.9% 1000ML 1,000 ML IV SCH ×3 (06:31→19:30)
[2021-09-29 07:01] LABS: BUN Creatinine Ratio 14.5 (10-20); Calcium 8.2 mg/dl (8.5-10.1); Creatinine Clr Calc Pharmacy 18.7 ml/min; Est GFR (Non-African American) 13.8 ml/min; Potassium 4.9 mmol/L (3.5-5.1)
[2021-09-29] MEDS: LEVOTHYROXINE SODIUM 137 MCG TABLET PO SCH (07:59)
[2021-09-29] MEDS ORDERED: cefTRIAXone SODIUM 1,000 MG in DEXTROSE 5% 50 ML IV SCH (10:00)
--- NOTE | 2021-09-29 10:45 | Urology Progress Note ---
Date of Service September 29, 2021 Assessment & Plan (1) Acute urinary retention: (2) Hydronephrosis: (3) Acute kidney injury: Plan: 66 yo M admitted for acute kidney injury and hydronephrosis in the setting of acute urinary retention and suspected chronic bladder outlet obstruction from enlarged prostate. - Patient afebrile, subjectively doing well. - Lab work reviewed - creatinine is slightly improved, but remains elevated at 4.14 (baseline ~1.3) - continue to trend. - CTAP reviewed and notable for bilateral hydronephrosis and hydroureter, distended bladder, and enlarged prostate. - Urine culture is pending - follow culture. Currently on Ceftriaxone per pr imary service. - Conner catheter intact, patent and draining clear pink urine. - Maintain Conner catheter for at least 7-10 days for bladder decompression and max drainage. - Continue Tamsulosin. - Consider addition of Finasteride for dual therapy. - PSA 2.041 - acceptable for age, no prior values for comparison at this time. - No acute intervention planned at this time. - He will likely need cystoscopy and consideration of urologic procedure such as TURP, but this can be discussed outpatient. - Will arrange follow-up with our service outpatient for voiding trial and further evaluation. - Urology will follow along. Admission and Anticipated Discharge Date Admission Date: September 28, 2021 Subjective Patient seen and examined at bedside in ER litter. He is awake, alert and sitting up in bed. Offers no complaints at this time. No abdominal or suprapubic pain. Conner catheter intact, patent and draining clear pink urine. No nausea or vomiting. No fever or chills. Review of Systems Constitutional: as per Subjective / HPI Gastrointestinal: as per Subjective / HPI Genitourinary: + as per Subjective / HPI Physical Exam Constitutional: well developed and well nourished; no acute distress Respiratory: normal respiratory effort; no respiratory distress and no labored breathing Cardiovascular: Extremities: no pedal edema Gastrointestinal (Abdomen): Inspection/Auscultation: abdomen normal to inspection; abdomen not distended Musculoskeletal: Extremities: extremities normal to inspection Neurologic: moves all extremities and awake Psychiatric: Orientation: alert and oriented x 3 Genitourinary: Conner intact and draining clear pink urine Results & Data ([facility]) Vital Signs (Past 12 Hours) Vital Signs Pulse Pulse Resp BP BP Pulse Ox O2 Del Method 09/29/21 09:00 58 L 16 97 09/29/21 04:03 138/72 09/29/21 04:00 50 L 18 138/72 96 Room Air 09/29/21 01:30 50 L 18 140/71 95 Room Air PG Care Time/CCT Total # of Minutes Spent Total Time Spent with Patient: Total time spent is greater than 50% in coordination of care (as documented) at patient's floor/unit and/or counseling patient: Coding Level of Care Code 94533 Subseq Hosp Care Lvl 2 Diagnoses Acute urinary retention R33.8 Hydronephrosis N13.30 Acute kidney injury N17.9
--- NOTE | 2021-09-29 15:33 | Hospitalist Progress Note ---
Date of Service September 29, 2021 Assessment & Plan (1) Acute kidney injury: (2) Hydronephrosis: (3) Abdominal pain: Plan: Patient is a 66 yr male with H/O hypothyroidism, hyperlipidemia, prediabetes, ZULMA and other medical problems listed below who presents with lower abdominal and groin pain over the past few days and was found to have FLORENTIN 2/2 bladder outlet obstruction. Obstructive uropathy Likely secondary to chronic bladder outlet obstruction/enlarged prostate Acute kidney injury likely due to above --CT abd/pelvis with bilateral renal cortical atrophy with mild to moderate hydronephrosis and hydroureter bilaterally. This is most likely chronic and phy siologic in nature due to distention of the urinary bladder. There are no renal, ureteral or bladder calculi --Baseline ~1.3 Cr:4.14 today Continue Connre catheter May need TURP eventually Monitor renal function Avoid nephrotoxic agents as able Continue tamsulosin, finasteride PSA:2.04 Appreciate urology input Continue IV fluids (4) Hypothyroidism: Plan: Continue levothyroxine (5) Hyperlipidemia: Plan: Diet controlled DVT Px: SCDs for now Code status: FULL CODE Admission and Anticipated Discharge Date Admission Date: September 28, 2021 Subjective Patient is seen and examined bedside States having decreased left groin pain Nausea resolved Noticed minimal blood-tinged urine Denies any chest pain, shortness of breath, dizziness Offers no other complaints Review of Systems Review of Systems: All systems reviewed & are unremarkable except as noted in Subjective Physical Exam Physical Exam: Physical Exam: Vitals signs as noted above General Appearance:Moderately built and nourished, no apparent distress Head: normocephalic, Atraumatic Eyes: normal inspection, EOMI Neck: supple, Trachea midline Respiratory/Chest: Normal breath sounds, CTA, No accessory muscle use Cardiovascular: S1, S2, No murmur Abdomen/GI:Soft, Non tender, Bowel sounds present Extremities/Musculoskeletal:normal inspection, no edema Neurologic/Psych:AAOX3, grossly no focal neurological deficits Skin: normal color, warm Results & Data Results & Data ([facility]) Vital Signs (Past 12 Hours) Vital Signs Pulse Pulse Resp BP BP Pulse Ox O2 Del Method 09/29/21 10:00 55 L 12 119/94 98 09/29/21 09:00 58 L 16 97 09/29/21 04:03 138/72 09/29/21 04:00 50 L 18 138/72 96 Room Air Laboratory Results Short CBC 09/28/21 09/29/21 Range/Units 16:24 05:32 WBC 5.04 6.06 (4.8-10.8) K/ul Hgb 11.5 L 10.2 L (14.0-18.0) g/dl Hct 37.5 L 32.7 L (40.1-51.0) % Plt Count 265 211 (130-400) K/uL BMP 09/28/21 09/29/21 16:24 05:32 Sodium 139 140 Potassium 4.5 4.9 Chloride 111 H 114 H Carbon Dioxide 20 L 18 L BUN 62 H 60 H Creatinine 4.63 H* 4.14 H D Glucose 114 H 91 Calcium 8.9 8.2 L Liver Function 09/28/21 Range/Units 16:24 Total Bilirubin 0.5 (0.2-1.0) mg/dl AST 16 (13-39) U/L ALT 9 (7-52) U/L Alkaline Phosphatase 45 (34-104) U/L Albumin 4.3 (3.4-5.0) gm/dl Urine 09/28/21 Range/Units 16:34 Urine Color Yellow Urine Appearance Clear (Clear) Urine pH 5.5 (4.5-7.5) Ur Specific Jackson 1.010 (1.000-1.030) Urine Protein Negative (Negative) Urine Glucose (UA) Negative (Negative)
[2021-09-29] MEDS: FINASTERIDE 5 MG TAB PO SCH (16:26)
[2021-09-29] MEDS: ACETAMINOPHEN 325 MG TAB PO PRN (18:30)
[2021-09-29] MEDS: TAMSULOSIN HCL 0.4 MG CAP PO SCH (19:34)
[2021-09-30] MEDS: SODIUM CHLORIDE 0.9% 1000ML 1,000 ML IV SCH ×2 (05:27→15:12)
[2021-09-30] MEDS: LEVOTHYROXINE SODIUM 137 MCG TABLET PO SCH (05:28)
--- NOTE | 2021-09-30 08:11 | Urology Progress Note ---
Date of Service September 30, 2021 Assessment & Plan (1) Acute urinary retention: (2) Hydronephrosis: (3) Acute kidney injury: Plan: 66 yo M admitted for acute kidney injury and hydronephrosis in the setting of acute urinary retention and suspected chronic bladder outlet obstruction from enlarged prostate. - Patient afebrile, subjectively doing well. - Lab work reviewed - creatinine is trending down, but remains elevated at 3.84 (baseline ~1.3) - continue to trend. - CTAP reviewed and notable for bilateral hydronephrosis and hydroureter, distended bladder, and enlarged prostate. - Urine culture showed no growth, antibiotics discontinued. - Conner catheter intact, patent and draining clear urine. - Maintain Conner catheter at least 7-10 days for bladder decompression and max drainage, recommend keep until f/u with urology. - Continue Tamsulosin and Finasteride for dual therapy. - No acute intervention planned at this time. - He will likely need cystoscopy and eventual urologic procedure such as TURP, but this can be done outpatient. - Will arrange follow-up with our service outpatient for voiding trial and cystoscopy. Thank you for allowing us to participate in the acute care of Mr. Nicolas. Please reconsult us with additional questions, concerns or changes in patient status. Admission and Anticipated Discharge Date Admission Date: September 28, 2021 Subjective Patient seen and examined at bedside this AM. Pt awake, alert and sitting up in bed. No acute issues overnight. Reports left groin pain yesterday afternoon, now resolved. Offers no complaints at present. No abdominal or suprapubic pain. Conner intact and draining clear yellow urine. No nausea or vomiting. No fever or chills. Review of Systems Constitutional: as per Subjective / HPI Gastrointestinal: as per Subjective / HPI Genitourinary: + as per Subjective / HPI Physical Exam Constitutional: well developed and well nourished; no acute distress and not ill appearing Neck: normal visual inspection Respiratory: normal respiratory effort and able to speak in complete sentence s; no respiratory distress and no labored breathing Cardiovascular: Extremities: no pedal edema Gastrointestinal (Abdomen): Inspection/Auscultation: abdomen normal to inspection; abdomen not distended Percussion/Palpation: abdomen soft; abdomen nontender and no guarding Neurologic: moves all extremities and awake Psychiatric: Orientation: alert, oriented x 3 and cooperative Genitourinary: Conner intact and draining clear yellow urine Results & Data ([facility]) Vital Signs (Past 12 Hours) Vital Signs Temp Pulse Resp BP Pulse Ox O2 Del Method 09/30/21 06:43 36.8 C 59 L 18 176/86 H 97 Room Air 09/30/21 03:09 36.3 C L 58 L 18 156/75 H 97 Room Air 09/29/21 23:47 36.8 C 55 L 18 163/79 H 97 Room Air PG Care Time/CCT Total # of Minutes Spent Total Time Spent with Patient: Total time spent is greater than 50% in coordination of care (as documented) at patient's floor/unit and/or counseling patient: Coding Level of Care Code 24427 Subseq Hosp Care Lvl 2 Diagnoses Acute urinary retention R33.8 Hydronephrosis N13.30 Acute kidney injury N17.9
[2021-09-30] MEDS: FINASTERIDE 5 MG TAB PO SCH (08:13)
[2021-09-30 08:22] LABS: Hematocrit (blood only) 33.7 % (40.1-51.0); Hemoglobin 10.4 g/dl (14.0-18.0); Mean Corpuscular Hemoglobin 29.3 pg (25.0-34.0); Mean Corpuscular Hgb Conc 30.9 g/dL (32.0-36.0); Mean Corpuscular Volume 94.9 fL (80.0-100.0); Mean Platelet Volume 9.2 fL (9.4-12.4); Platelet Count 219 K/uL (130-400); RDW Coefficient of Variation 14.1 % (11.5-14.5); RDW Standard Deviation 49.1 fL (36.4-46.3); Red Blood Count 3.55 M/uL (4.63-6.08); White Blood Count 5.02 K/ul (4.8-10.8)
[2021-09-30 08:53] LABS: BUN Creatinine Ratio 12.2 (10-20); Calcium 8.5 mg/dl (8.5-10.1); Creatinine Clr Calc Pharmacy 20.2 ml/min; Est GFR (African American) 17.5 ml/min; Est GFR (Non-African American) 15.1 ml/min; Potassium 5.1 mmol/L (3.5-5.1)
[2021-09-30] MEDS: hydrALAZINE HCL 20 MG/ML VIAL IV PRN ×3 (09:14→18:11)
[2021-09-30] MEDS ORDERED: Nursing to Pharmacy Communication SCH (14:00)
[2021-09-30] MEDS ORDERED: amLODIPine BESYLATE 5 MG TAB PO ONE (15:37)
--- NOTE | 2021-09-30 15:44 | Hospitalist Progress Note ---
Date of Service September 30, 2021 Assessment & Plan (1) Acute kidney injury: (2) Hydronephrosis: (3) Abdominal pain: Plan: Patient is a 66 yr male with H/O hypothyroidism, hyperlipidemia, prediabetes, ZULMA and other medical problems listed below who presents with lower abdominal and groin pain over the past few days and was found to have FLORENTIN 2/2 bladder outlet obstruction. Obstructive uropathy Likely secondary to chronic bladder outlet obstruction/enlarged prostate Acute kidney injury likely due to above --CT abd/pelvis with bilateral renal cortical atrophy with mild to moderate hydronephrosis and hydroureter bilaterally. This is most likely chronic and ph ysiologic in nature due to distention of the urinary bladder. There are no renal, ureteral or bladder calculi --Baseline ~1.3 Cr:4.14>>3.84 Continue Conner catheter May need TURP eventually Monitor renal function Avoid nephrotoxic agents as able Continue tamsulosin, finasteride PSA:2.04 Appreciate urology input Continue IV fluids Continue Conner for at least 7-10 days Outpatient for voiding trial and cystoscopy as per Urology Needs follow up with Urology upon discharge (4) Hypothyroidism: Plan: Continue levothyroxine (5) Hyperlipidemia: Plan: Diet controlled DVT Px: SCDs for now Code status: FULL CODE Admission and Anticipated Discharge Date Admission Date: September 28, 2021 Subjective Patient is seen and examined bedside Left groin pain resolved Clear Urine today Denies any chest pain, shortness of breath, dizziness Offers no other complaints Renal function is improving Review of Systems Review of Systems: All systems reviewed & are unremarkable except as noted in Subjective Physical Exam Physical Exam: Physical Exam: Vitals signs as noted above General Appearance:Moderately built and nourished, no apparent distress Head: normocephalic, Atraumatic Eyes: normal inspection, EOMI Neck: supple, Trachea midline Respiratory/Chest: Normal breath sounds, CTA, No accessory muscle use Cardiovascular: S1, S2, No murmur Abdomen/GI:Soft, Non tender, Bowel sounds present Extremities/Musculoskeletal:normal inspection, no edema Neurologic/Psych:AAOX3, grossly no focal neurological deficits Skin: normal color, warm Results & Data Results & Data ([facility]) Vital Signs (Past 12 Hours) Vital Signs Temp Pulse Pulse Resp BP Pulse Ox O2 Del Method 09/30/21 15:00 36.8 C 57 L 18 194/85 H 97 Room Air 09/30/21 11:06 36.8 C 54 L 18 179/92 H 98 Room Air 09/30/21 10:54 44 L 09/30/21 09:15 55 L 177/82 H 09/30/21 06:43 36.8 C 59 L 18 176/86 H 97 Room Air Laboratory Results Short CBC 09/30/21 Range/Units 07:44 WBC 5.02 (4.8-10.8) K/ul Hgb 10.4 L (14.0-18.0) g/dl Hct 33.7 L (40.1-51.0) % Plt Count 219 (130-400) K/uL BMP 09/30/21 07:44 Sodium 140 Potassium 5.1 Chloride 114 H Carbon Dioxide 21 BUN 47 H Creatinine 3.84 H D Glucose 99 Calcium 8.5
[2021-09-30] MEDS ORDERED: SIMETHICONE 80 MG CHEW PO STA (21:08)
[2021-09-30] MEDS: TAMSULOSIN HCL 0.4 MG CAP PO SCH (21:09)
[2021-09-30] MEDS: ACETAMINOPHEN 325 MG TAB PO PRN (23:52)
[2021-10-01] MEDS: SODIUM CHLORIDE 0.9% 1000ML 1,000 ML IV SCH (03:38)
[2021-10-01] MEDS: LEVOTHYROXINE SODIUM 137 MCG TABLET PO SCH (05:51)
[2021-10-01 07:49] LABS: Hematocrit (blood only) 32.6 % (40.1-51.0); Hemoglobin 10.4 g/dl (14.0-18.0)
[2021-10-01] MEDS: FINASTERIDE 5 MG TAB PO SCH (08:29)
[2021-10-01] MEDS: amLODIPine BESYLATE 5 MG TAB PO SCH (08:29)
[2021-10-01 08:36] LABS: BUN Creatinine Ratio 12.4 (10-20); Calcium 8.5 mg/dl (8.5-10.1); Creatinine Clr Calc Pharmacy 22.4 ml/min; Est GFR (African American) 19.9 ml/min; Est GFR (Non-African American) 17.2 ml/min; Potassium 4.6 mmol/L (3.5-5.1)
--- NOTE | 2021-10-01 11:29 | Hospitalist Progress Note ---
Date of Service October 01, 2021 Assessment & Plan (1) Acute kidney injury: (2) Hydronephrosis: (3) Abdominal pain: Plan: Patient is a 66 yr male with H/O hypothyroidism, hyperlipidemia, prediabetes, ZULMA and other medical problems listed below who presented to the ED with lower abdominal and groin pain over the past few days [employer] and was found to have FLORENTIN 2/2 bladder outlet obstruction. FLORENTIN likely due to obstructive uropathy Likely secondary to chronic bladder outlet obstruction/enlarged prostate --CT abd/pelvis with bilateral renal cortical atrophy with mild to moderate hydronephrosis and hydroureter bilaterally. This is most likely chronic and physiologic in nature due to distention of the urinary bladder. There are no renal, ureteral or bladder calculi --Baseline Cr of 0.9-1, last one was Feb 2021. - Improving renal function-- Cr on admission 4.6->4.1->3.8->3.46 Continue IVF, recheck in am. Not on any nephrotoxics. Continue Krause catheter. Per uro, continue krause for at least 7-10 days for bladder decompression and max drainage- recommended to keep until OP uro follow up Follow with uro as OP for cysto and TURP. Continue tamsulosin, finasteride PSA:2.04 (4) Hypothyroidism: Plan: Continue levothyroxine (5) Hyperlipidemia: Plan: Diet controlled Plan DVT ppx: SCDs for now. Ambulating independently around the abel Dispo- Transfer [facility] without tele. Monitoring renal function. Anticipate discharge in 1-2 days if renal function significantly improves, otherwise will need nephro eval. Admission and Anticipated Discharge Date Admission Date: September 28, 2021 Subjective Feels fine. Had abd pain last night which resolved with simethicone and requesting to have it qid. Ambulating around the abel independently. No other issues. No fever, chills, chest pain, shortness of breath, N/V, abd pain, flank pain. Enquiring about his renal function. We reviewed his prior Cr from his OP, baseline of 0.9-1. Physical Exam Physical Exam: General: Ambulating independently around the abel, not in distress, on room air HEENT: EOMI, TOVA, MMM Chest: Clear breath sounds bilaterally, no wheezes or crackles CVS: Regular rate and rhythm, normal heart sounds, no murmur Abdomen: Soft, non tender, not distended, normal bowel sounds Neuro: Awake, alert, oriented, conversing well, non focal Extremities: No cyanosis, clubbing or edema Results & Data Results & Data ([facility]) Vital Signs (Past 12 Hours) Vital Signs Temp Pulse Pulse Pulse Resp BP Pulse Ox 10/01/21 10:45 57 L 10/01/21 08:33 36.5 C 55 L 18 162/81 H 98 10/01/21 05:24 63 10/01/21 02:15 36.3 C L 71 18 143/74 H 100 O2 Del Method 10/01/21 10:45 10/01/21 08:33 Room Air 10/01/21 05:24 10/01/21 02:15 Room Air Laboratory Results Short CBC 10/01/21 Range/Units 07:02 Hgb 10.4 L (14.0-18.0) g/dl Hct 32.6 L (40.1-51.0) % BMP 10/01/21 07:02 Sodium 137 Potassium 4.6 Chloride 111 H Carbon Dioxide 21 BUN 43 H Creatinine 3.46 H D Glucose 97 Calcium 8.5 Medications Administered Current Inpatient Medications Acetaminophen (Acetaminophen 325 Mg Tab) 650 mg PO Q4H PRN PRN Reason: Pain or Fever Stop: 10/28/21 22:07 Last Admin: 09/30/21 23:52 Dose: 650 mg Amlodipine Besylate (Amlodipine Besylate 5 Mg Tab) 5 mg PO [facility] Stop: 10/31/21 08:59 Last Admin: 10/01/21 08:29 Dose: 5 mg Finasteride (Finasteride 5 Mg Tab) 5 mg PO [facility] Stop: 10/29/21 15:44 Last Admin: 10/01/21 08:29 Dose: 5 mg Hydralazine HCl (Hydralazine Hcl 20 Mg/Ml Vial) 5 mg IV Q6H PRN PRN Reason: sbp >160 Stop: 10/28/21 19:33 Last Admin: 09/30/21 18:11 Dose: 5 mg Dextrose/Sodium Chloride (D5w And 1/2nss) 1,000 mls @ 125 mls/hr IV .Q8H SUMEET Stop: 10/31/21 11:29 Levothyroxine Sodium (Levothyroxine Sodium 137 Mcg Tablet) 137 mcg PO DAILYBB SUMEET Stop: 10/29/21 06:29 Last Admin: 10/01/21 05:51 Dose: 137 mcg Ondansetron HCl (Ondansetron Inj 2 Mg/Ml 2 Ml Vial) 4 mg IV Q6H PRN PRN Reason: Nausea Stop: 10/28/21 22:07 Polyethylene Glycol (Polyethylene (Miralax) 17 Gm Pack) 17 gm PO DAILY PRN PRN Reason: Constipation Stop: 10/28/21 22:07 Simethicone (Simethicone 80 Mg Chew) 80 mg PO TIDM SUMEET Stop: 10/31/21 11:59 Simethicone (Simethicone 80 Mg Chew) 80 mg PO HS SUMEET Stop: 10/31/21 20:59 Tamsulosin HCl (Tamsulosin Hcl 0.4 Mg Cap) 0.4 mg PO HS SUMEET Stop: 10/28/21 20:59 Last Admin: 09/30/21 21:09 Dose: 0.4 mg
[2021-10-01] MEDS: D5W AND 1/2NSS 1,000 ML IV SCH ×2 (11:49→18:24)
[2021-10-01] MEDS: SIMETHICONE 80 MG CHEW PO SCH ×3 (11:49→20:07)
[2021-10-01] MEDS: TAMSULOSIN HCL 0.4 MG CAP PO SCH (20:06)
[2021-10-02] MEDS: ACETAMINOPHEN 325 MG TAB PO PRN ×2 (01:35→19:45)
[2021-10-02] MEDS: D5W AND 1/2NSS 1,000 ML IV SCH ×2 (01:37→10:00)
[2021-10-02] MEDS: LEVOTHYROXINE SODIUM 137 MCG TABLET PO SCH (06:09)
[2021-10-02 06:36] LABS: Calcium 8.7 mg/dl (8.5-10.1); Creatinine Clr Calc Pharmacy 23.3 ml/min; Est GFR (African American) 20.8 ml/min; Magnesium 1.8 mg/dl (1.7-2.4); Potassium 4.7 mmol/L (3.5-5.1)
[2021-10-02] MEDS: SIMETHICONE 80 MG CHEW PO SCH ×4 (08:17→19:42)
[2021-10-02] MEDS: amLODIPine BESYLATE 5 MG TAB PO SCH (08:17)
[2021-10-02] MEDS: FINASTERIDE 5 MG TAB PO SCH (08:17)
--- NOTE | 2021-10-02 11:27 | Hospitalist Progress Note ---
Date of Service October 02, 2021 Assessment & Plan (1) Acute kidney injury: (2) Hydronephrosis: (3) Abdominal pain: Plan: Patient is a 66 yr male with H/O hypothyroidism, hyperlipidemia, prediabetes, ZULMA and other medical problems listed below who presented to the ED with lower abdominal and groin pain over the past few days SOAP MA[employer] and was found to have FLORENTIN 2/2 bladder outlet obstruction. FLORENTIN likely due to obstructive uropathy Likely secondary to chronic bladder outlet obstruction/enlarged prostate --CT abd/pelvis with bilateral renal cortical atrophy with mild to moderate hydronephrosis and hydroureter bilaterally. This is most likely chronic and physiologic in nature due to distention of the urinary bladder. There are no renal, ureteral or bladder calculi --Baseline Cr of 0.9-1, last one was Feb 2021. - Improving renal function but seems to have plateaued now-- Cr on admission 4.6->4.1->3.8->3.4->3.3 - Since not improving and will need close OP follow up, will consult nephrology - Continue IVF, recheck in am. Not on any nephrotoxics. Continue Krause catheter. Per uro, continue krause for at least 7-10 days for bladder decompression and max drainage- recommended to keep until OP uro follow up Follow with uro as OP for cysto and TURP. Continue tamsulosin, finasteride PSA:2.04 (4) Hypothyroidism: Plan: Continue levothyroxine (5) Hyperlipidemia: Plan: Diet controlled (6) Hypertension: Plan: BP stays high. Will increase norvasc to 10 mg daily and monitor. Plan DVT ppx: SCDs for now. Ambulating independently around the abel Dispo- Nephro eval pending. Monitoring renal function. Updated over the phone Admission and Anticipated Discharge Date Admission Date: September 28, 2021 Subjective No new issues. States he still has intermittent left groin pain but simethicone helps him pass gas and he feels better. Discussed about his labs and spoke to his over the phone and answered all her questions. Physical Exam Physical Exam: General: Sitting in bedl, not in distress, on room air HEENT: EOMI, TOVA, MMM Chest: Clear breath sounds bilaterally, no wheezes or crackles CVS: Regular rate and rhythm, normal heart sounds, no murmur Abdomen: Soft, non tender, not distended, normal bowel sounds Neuro: Awake, alert, oriented, conversing well, non focal Extremities: No cyanosis, clubbing or edema Krause with clear urine Results & Data Results & Data ([facility]) Vital Signs (Past 12 Hours) Vital Signs Temp Pulse Resp BP Pulse Ox O2 Del Method 10/02/21 07:52 36.4 C L 53 L 18 163/78 H 97 Room Air 10/02/21 03:00 36.6 C 60 18 175/84 H 98 Room Air Laboratory Results [facility] 10/02/21 05:58 Sodium 137 Potassium 4.7 Chloride 112 H Carbon Dioxide 20 L BUN 40 H Creatinine 3.33 H Glucose 110 H Calcium 8.7 Medications Administered Current Inpatient Medications Acetaminophen (Acetaminophen 325 Mg Tab) 650 mg PO Q4H PRN PRN Reason: Pain or Fever Stop: 10/28/21 22:07 Last Admin: 10/02/21 01:35 Dose: 650 mg Amlodipine Besylate (Amlodipine Besylate 5 Mg Tab) [facility] Stop: 11/02/21 08:59 Finasteride (Finasteride 5 Mg Tab) [facility] [place] Stop: 10/29/21 15:44 Last Admin: 10/02/21 08:17 Dose: 5 mg Hydralazine HCl (Hydralazine Hcl 20 Mg/Ml Vial) 5 mg IV Q6H PRN PRN Reason: sbp >160 Stop: 10/28/21 19:33 Last Admin: 09/30/21 18:11 Dose: 5 mg Dextrose/Sodium Chloride (D5w And 1/2nss) 1,000 mls @ 125 mls/hr IV .Q8H SUMEET Stop: 10/31/21 11:29 Last Admin: 10/02/21 10:00 Dose: 125 mls/hr Levothyroxine Sodium (Levothyroxine Sodium 137 Mcg Tablet) 137 mcg PO DAILYBB [facility] Stop: 10/29/21 06:29 Last Admin: 10/02/21 06:09 Dose: 137 mcg Ondansetron HCl (Ondansetron Inj 2 Mg/Ml 2 Ml Vial) 4 mg IV Q6H PRN PRN Reason: Nausea Stop: 10/28/21 22:07 Polyethylene Glycol (Polyethylene (Miralax) 17 Gm Pack) 17 gm PO DAILY PRN PRN Reason: Constipation Stop: 10/28/21 22:07 Simethicone (Simethicone 80 Mg Chew) 80 mg PO TIDM SUMEET Stop: 10/31/21 11:59 Last Admin: 10/02/21 08:17 Dose: 80 mg Simethicone (Simethicone 80 Mg Chew) 80 mg PO HS SUMEET Stop: 10/31/21 20:59 Last Admin: 10/01/21 20:07 Dose: 80 mg Tamsulosin HCl (Tamsulosin Hcl 0.4 Mg Cap) 0.4 mg PO HS [facility] Stop: 10/28/21 20:59 Last Admin: 10/01/21 20:06 Dose: 0.4 mg
--- NOTE | 2021-10-02 15:30 | Nephrology Consultation ---
Date of Consultation October 02, 2021 Assessment & Plan (1) Renal insufficiency: hydronephrosis and hyroureter likely chronic as demonstrated by renal cortical atrophy > he may or may not improve much further over time; unlikely at this point to show short term dramatic improvement. 600 mL + overall on the ad mission -daily bmp while in house -at pt request ordered scraper hand consult for modified renal diet -no nsaids now or at d/c -hospital discharge appt with Jonathan or Chandra in [facility] 2-4 wks after hospital discharge -weekly bmp to be ordered by neph RN until f/u in clinic up to 4 wks (2) Left inguinal pain: ? cause but notable in interview and concerning to pt/ >> ? inguinal hernia or other; no stone on imaging and worsened by po intake so suspect it's GI r elated also significant heartburn/gas -ordered KUB -defer to hospitalist for further eval/workup -minimize aluminum containing gas tabs if possible (3) Lower obstructive uropathy: -krause and OP f/u as per urology instructions (4) Hypertension: ? if situational; does not meet HTN criteria on OP readings -monitor after d/c -would d/c on 5 mg daily amlodipine; ok to continue 10 mg daily until then History of Present Illness Reason for Consultation: too slow recovery of post obstructive FLORENTIN Requesting Physician: Dr Soto Attending Physician: Francis Woodward MD History of Present Illness 66 y/o M whom I'm asked to see for post obstructive FLORENTIN that has been slow to recover was admitted on 09/28 for FLORENTIN on CKD in the setting of chronic bladder outlet obstruction from prostatic hypertrophy. Admission creatinine was 4.6; today it has slowly downtrended to 3.3; baseline approximately 1.3 in 2017 and in 2018; was 1.1 in August 2019. Very few OP datapoints however. Urology has been following > no surgical intervention at this time; pt has had krause placed and will keep it until OP voiding trial/cystoscopy; for likely TURP once renal function normalizes. PMH includes hypothyroidism. Pt has had stuttering L inguinal pain since spring 2021 and did see PCP about it; abd u/s was unrevealing as to cause and no f urther f/u from pt. The inguinal pain has worsened over past week or so; he is unable to walk or stand much now; he feels it relates to food intake and is very worried about gas. no n/v, some heartburn at times but no other abd pain; no gross hematuria; no flank pain; no F; no chest pain or sob, no edema, no decreased po. no rash. The patient and his are very conscious of their diet and have done intermittent fasting and modified keto diets to lose weight. Pt worried about weight gain in hospital; they have many questions about diet to minimize gas and for best kidney function. Allergies Allergy/AdvReac Type Severity Reaction Status Date / Time No Known Allergies Allergy Unknown Verified 11/06/04 19:57 Home Medications Medication Instructions Recorded Confirmed Type levothyroxine 137 mcg tablet 137 mcg PO DAILY 09/28/21 09/28/21 History Patient History Medical History Hyperlipidemia Hypothyroidism Surgical History H/O inguinal hernia repair Family History Other Heart disease Stroke Social History Smoking Status: Never smoker Hx Alcohol Use: No Hx Substance Use: No Preferred Language: Hebrew Communication Ability: Effective Staff Veterinarian Required: No Beliefs That Will Affect Care: None Current Living Situation: Spouse Other Information That Helps Us Care for You: No Feels Safe at Home: Yes Safety Concerns: Feels Safe At This Time Assistive Devices: None Review of Systems Review of Systems: All systems reviewed & are unremarkable except as noted in HPI & below Physical Exam Constitutional: well developed, well nourished, average body habitus, healthy appearing and cooperative; no acute distress Eyes: EOM intact bilaterally ENMT: Ears: no external ear abnormality Nose: no external nose abnormality Mouth: + dry oral mucous membranes Neck: no nuchal rigidity Respiratory: normal respiratory effort Auscultation: + diminished lung sounds Cardiovascular: Rate/Rhythm: regular rhythm and + bradycardic Heart Sounds: no murmur Extremities: no edema Gastrointestinal (Abdomen): Inspection/Auscultation: abdomen normal to inspection and normal bowel sounds; no high-pitched sounds and no hyperactive bowel sounds Percussion/Palpation: abdomen soft; abdomen nontender visibly uncomfortable during conversation and wtih exam maneuvers d/t L inguinal discomfort; no reducible hernia noted L groin Musculoskeletal: Extremities: strength 5/5 throughout Skin: no rashes, warm and dry Neurologic: young, fluent speech, no tremor Psychiatric: Orientation: oriented x 3 Speech: normal rate/rhythm/volume of speech Insight: good insight Judgement: good judgement Genitourinary: krause w/ ample yellow urine Results & Data ([facility]) Vital Signs (Past 12 Hours) Vital Signs Temp Pulse Resp BP Pulse Ox O2 Del Method 10/02/21 11:00 36.5 C 58 L 20 177/85 H 97 Room Air 10/02/21 07:52 36.4 C L 53 L 18 163/78 H 97 Room Air Laboratory Results 10/01/21 07:02 10/02/21 05:58 UA 1+ LE 10-30 WBC and 10-20 epi; no bacteria PSA wnl Diagnostic Findings CT abd pelvis wo con CLINICAL HISTORY: abd pain COMPARISON STUDY: 10/19/2016 CT DOSE: 414.78 mGy.cm TECHNIQUE: Standard CT of the Abdomen and Pelvis was performed without IV contrast. The patient did not receive oral contrast. A dose lowering technique was utilized adhering to the principles of ALARA. FINDINGS: Lung base: The lung bases are clear. Abdominal cavity: There is no evidence for abdominal mass, adenopathy or ascites. Liver: The liver is homogeneous in attenuation on these limited noncontrast images.. Spleen: The spleen is homogeneous in attenuation on these limited noncontrast images. Pancreas: The pancreas is homogeneous in attenuation on these limited noncontrast images. Gall Bladder: The gallbladder is well distended with no evidence for cholelithiasis, wall thickening or pericholecystic edema.. Adrenal glands: The adrenal glands are normal in size and attenuation on these limited noncontrast images. Kidneys: There is renal cortical atrophy present bilaterally. There is mild to moderate bilateral hydronephrosis and hydroureter with no evidence for renal or ureteral calculi. This most likely physiologic with distention of the urinary bladder present. Bowel: The bowel loops are normally placed within the abdomen and pelvis without evidence for dilatation or obstruction. There is no evidence for mass lesion. There is mild sigmoid diverticulosis without evidence for diverticulitis. There are no inflammatory changes present. There is no evidence for free air. There is a normal appendix in the right lower quadrant. Bladder: There is distention of the urinary bladder with no evidence for focal bladder wall thickening, calculus or diverticulum. : There is no evidence for pelvic mass or adenopathy. The prostate is mildly to moderately enlarged encroachment upon the floor the bladder. Vasculature: There is no evidence for focal aneurysmal dilatation of the abdominal aorta. Atherosclerotic calcification is present. Osseous structures: There is no acute osseous pathology. Degenerative changes are seen within the spine. IMPRESSION: 1. Bilateral renal cortical atrophy with mild to moderate hydronephrosis and hydroureter bilaterally. This is most likely chronic and physiologic in nature due to distention of the urinary bladder. There are no renal, ureteral or bladder calculi 2. No other evidence for acute intra-abdominal or pelvic abnormality on these limited noncontrast images. 3. Additional nonacute findings are delineated above.
[2021-10-02] MEDS: TAMSULOSIN HCL 0.4 MG CAP PO SCH (19:42)
--- NOTE | 2021-10-02 20:37 | Surgery Consultation ---
Date of Consultation October 02, 2021 Assessment & Plan (1) Left inguinal pain: Etiology is unclear. He has had the pain for 4 months. He relates that sometimes to eating sometimes to walking. He states it gets a lot better after taking Gas-X. He is currently feeling a little better than he was evaluated by my PA earlier this evening. I want to review the CT scan from 2 days ago with our radiologist in the morning. I will likely then order an MRI to evaluate the pelvis for other pathology. No urgent indication for surgery this evening. Patient currently reasonably comfortable. (2) Lower obstructive uropathy: (3) Renal insufficiency: History of Present Illness Attending Physician: Francis Woodward MD History of Present Illness 66-year-old male with about a 4-month history of left groin pain. He presented several days ago was noted to have a bladder outlet obstruction presumably from prostamegaly. He is being seen by urology and nephrology. CT scan at that time revealed bilateral hydronephrosis. There was no evidence of any bowel issues. He does have a history of a left inguinal hernia repair in 2002. He had an ultrasound performed recently for this left groin pain which he told me was read as normal. Allergies Allergy/AdvReac Type Severity Reaction Status Date / Time No Known Allergies Allergy Unknown Verified 11/06/04 19:57 Home Medications Medication Instructions Recorded Confirmed Type levothyroxine 137 mcg tablet 137 mcg PO DAILY 09/28/21 09/28/21 History Patient History Medical History Hyperlipidemia Hypothyroidism Surgical History H/O inguinal hernia repair Family History Other Heart disease Stroke Social History Smoking Status: Never smoker Hx Alcohol Use: No Hx Substance Use: No Preferred Language: Kyrgyz Communication Ability: Effective Procurement Cost Coordinator Required: No Beliefs That Will Affect Care: None Current Living Situation: Spouse Other Information That Helps Us Care for You: No Feels Safe at Home: Yes Safety Concerns: Feels Safe At This Time Assistive Devices: None Review of Systems Review of Systems: All systems reviewed & are unremarkable except as noted in HPI & below Physical Exam Constitutional: WD/WN, vitals as above no acute distress and not ill appearing Eyes: PERRL, conjunctivae normal, anicteric sclerae EOM intact bilaterally ENMT: external ear and nose normal, oropharynx normal Ears: no hearing impairment Neck: trachea midline, no thyromegaly Respiratory: normal respiratory effort; no respiratory distress and does not use accessory muscles Cardiovascular: Rate/Rhythm: regular rate and regular rhythm Gastrointestinal (Abdomen): Soft. Positive tenderness in the left groin. Difficult exam secondary to prior mesh placement. No skin changes. Left groin does have some firmness but again he has a history of mesh placement. No obvious hernia. Skin: no rashes, warm and dry Psychiatric: Orientation: alert, oriented x 3 and cooperative Results & Data ([facility]) Vital Signs (Past 12 Hours) Vital Signs Temp Pulse Resp BP Pulse Ox O2 Del Method 10/02/21 19:00 36.6 C 63 19 174/83 H 97 Room Air 10/02/21 11:00 36.5 C 58 L 20 177/85 H 97 Room Air PG Care Time/CCT Total # of Minutes Spent Total Time Spent with Patient: Total time spent is greater than 50% in coordination of care (as documented) at patient's floor/unit and/or counseling patient: Coding Level of Care Code 17569 Inpt Consult Level 4 Diagnoses Left inguinal pain R10.32 Lower obstructive uropathy N13.9 Renal insufficiency N28.9
[2021-10-02 21:07] LABS: Appearance Urine Clear (Clear); Bacteria Urine Automated Negative (Negative); Bilirubin Urine Negative (Negative); Blood Urine 2+ (Negative); Cast Urine Automated 0 /lpf (0-5); Color Urine Yellow; Glucose Urine UA Negative (Negative); Ketones Urine Negative (Negative); Leukocyte Esterase Urine Negative (Negative); Nitrite Urine Negative (Negative); Protein Urine 1+ (Negative); RBC Urine Automated 0-4 /hpf (0-4); Specific Gravity Urine 1.007 (1.000-1.030); Urobilinogen Urine Negative (Negative); pH Urine 5.5 (4.5-7.5)
[2021-10-03] MEDS: LEVOTHYROXINE SODIUM 137 MCG TABLET PO SCH (05:41)
--- NOTE | 2021-10-03 08:06 | XRay Report ---
XR KUB/Abdomen 1 view CLINICAL HISTORY: gas, HB, and L inquinal pain all w/ po intake TECHNIQUE: 1 view of the abdomen was obtained. Comparison: Comparison is made to CT abdomen pelvis 09/28/2021 FINDINGS: Lung bases are unremarkable. Degenerative changes are seen in the visualized skeleton. The bowel gas pattern is nonobstructive. A moderate amount of stool is noted within the large bowel. IMPRESSION: Nonobstructive bowel gas pattern. ACT 112: Negative or not required by law. Electronically signed by: Jason Martinez M.D. 10/03/2021 8:05 AM
[2021-10-03] MEDS: SIMETHICONE 80 MG CHEW PO SCH ×2 (08:36→12:40)
[2021-10-03] MEDS: FINASTERIDE 5 MG TAB PO SCH (08:43)
[2021-10-03] MEDS ORDERED: amLODIPine BESYLATE 5 MG TAB PO SCH (09:00)
[2021-10-03 09:02] LABS: BUN Creatinine Ratio 12.5 (10-20); Calcium 9.2 mg/dl (8.5-10.1); Creatinine Clr Calc Pharmacy 22.6 ml/min; Est GFR (African American) 20.1 ml/min; Est GFR (Non-African American) 17.3 ml/min; Potassium 4.8 mmol/L (3.5-5.1)
--- NOTE | 2021-10-03 11:26 | Nephrology Progress Note ---
Date of Service October 03, 2021 Assessment & Plan (1) Renal insufficiency: Plan: Creatinine hanging in mid 3's past 72 hrs; if this is his new baseline (and it may be), this would be advanced CKD 4. hydronephrosis and hydroureter likely chronic as demonstrated by renal cortical atrophy > he may or may not improve much further over time; unlikely at this point to show short term dramatic improvement. -daily bmp while in house -at pt request ordered grill cook consult for modified renal diet -no nsaids now or at d/c -recommend no more than average 70 gm daily protein intake and <2 gm daily sodium diet; favor also plant based over processed foods/animal products diet all to promote renal longevity at d/c; low K or low phos diet not necessarily indicated at this time -hospital discharge appt with Jonathan or Chandra in [facility] 2-4 wks after hospital discharge -weekly bmp and phos, albumin, hgb to be ordered by neph RN until f/u in clinic up to 4 wks -d/c on 5 mg amlodipine not 10 mg >>>needs PCP f/u >>pls ensure help or at least a start on how to arrange insurance coverage for him >> he stated yesterday he has no health insurance; recommend consideration of insurance program that would enable him to have [employer] CKD special education case manager for smoother navigation of his health problems such as Medicare ([employer]) or a [employer] product (2) Left inguinal pain: Plan: ? cause but notable in interview and concerning to pt/ >> ? inguinal hernia or other; no stone on imaging and worsened by po intake so suspect it's GI related also significant heartburn/gas -appreciate surgical and hospitalist input; work up in process -minimize aluminum containing gas tabs if possible (3) Lower obstructive uropathy: Plan: -krause and OP f/u as per urology instructions (4) Hypertension: Plan: ? if situational; does not meet HTN criteria on OP readings -monitor after d/c -would d/c on 5 mg daily amlodipine; ok to continue 10 mg daily until then Admission and Anticipated Discharge Date Admission Date: September 28, 2021 Subjective pt discharged from hospital before I could see him on 10/03; recommendations from assessemnt/plan on this note were reveiwed w/ hospitalist Physical Exam Constitutional: + acute distress Results & Data ([facility]) Vital Signs (Past 12 Hours) Vital Signs Temp Pulse Resp BP Pulse Ox O2 Del Method 10/03/21 07:00 36.5 C 56 L 20 144/83 H 97 Room Air Laboratory Results 10/01/21 07:02 10/03/21 07:44
--- NOTE | 2021-10-03 13:05 | Surgery Progress Note ---
Date of Service October 03, 2021 Assessment & Plan (1) Recurrent left inguinal hernia: Plan: I discussed the previous CT scan with Dr. Jauregui. He clearly sees a left inguinal hernia with sigmoid bowel incarceration. We discussed these findings with the patient. We will need to have his urologic issue cleared up prior to consideration of operative intervention. For now we discussed him getting an inguinal truss to wear. I will see him in the office in a week or 2. There is no bowel obstruction or injury at this point in time. We discussed no strenuous activity exercise etc. Follow-up with me in 2 weeks. (2) Hydronephrosis: (3) Acute kidney injury: Admission and Anticipated Discharge Date Admission Date: September 28, 2021 Subjective Patient seen. Continues to have some mild left groin pain but is improved from yesterday. He is interested in going home soon. Physical Exam Constitutional: WD/WN, vitals as above no acute distress and not ill appearing Eyes: PERRL, conjunctivae normal, anicteric sclerae EOM intact bilaterally ENMT: external ear and nose normal, oropharynx normal Ears: no hearing impairment Neck: trachea midline, no thyromegaly Respiratory: normal respiratory effort; no respiratory distress and does not use accessory muscles Cardiovascular: Rate/Rhythm: regular rate and regular rhythm Gastrointestinal (Abdomen): Soft. Mild left groin tenderness. Difficult to palpate the hernia secondary to prior surgery. Skin: no rashes, warm and dry Psychiatric: Orientation: alert, oriented x 3 and cooperative Results & Data ([facility]) Vital Signs (Past 12 Hours) Vital Signs Temp Pulse Resp BP Pulse Ox O2 Del Method 10/03/21 07:00 36.5 C 56 L 20 144/83 H 97 Room Air PG Care Time/CCT Total # of Minutes Spent Total Time Spent with Patient: Total time spent is greater than 50% in coordination of care (as documented) at patient's floor/unit and/or counseling patient: Coding Level of Care Code 26275 Subseq Hosp Care Lvl 3 Diagnoses Recurrent left inguinal hernia K40.91 Hydronephrosis N13.30 Acute kidney injury N17.9
--- NOTE | 2021-10-03 14:41 | Discharge Summary ---
Date of Service October 03, 2021 Admission HPI Per Admitting Provider This is a 66-year-old male with PMH of hypothyroidism, hyperlipidemia, prediabetes, ZULMA and other medical problems listed below who presents with lower abdominal and groin pain over the past few days. Endorses progressive pain in left lower abdomen radiating into groin that is exacerbated by movement and after eating. Thought he was having issues with the hernia and came to ED for further evaluation. He has had difficulty urinating over the past 1 to 2 years with increased frequency and urgency. Has never been seen by urologist. Endorses associated nausea with abdominal pain but no vomiting. Tried ibuprofen at home a few times without much relief. No fever, chills, congestion, headache, chest pain, shortness of breath, vomiting, dysuria, diarrhea or constipation. Only home medication patient is on is levothyroxine. PCP is Dr. Oakes. Admission Exam Per Admitting Provider General Appearance:WD/WN, vitals as above, NAD, sitting up in bed, pleasant, conversing easily Head: normocephalic, atraumatic Eyes:normal inspection, PERRL, conjunctivae normal, anicteric sclerae ENT: external ear and nose normal, oropharynx normal Neck: normal visual inspection, trachea midline, no thyromegaly Respiratory:normal respiratory effort, lungs clear to auscultation, no wheeze, rales, rhonchi. No accessory muscle use Cardiovascular: regular rate, rhythm, no murmur, normal peripheral pulses, no BLE edema. Vessels: no JVD Chest: normal inspection of chest Abdomen/GI: normal bowel sounds, soft,no hepatosplenomegaly : Krause catheter in place Extremities/Musculoskeletal: no cyanosis or clubbing, extremities motor strength 5/5 Neurologic: PERRL, EOMI, accommodation nl, no face palsy, no dysarthria, CN's II-XI intact bilaterally and moves all extremities Psychiatric:A+Ox3, euthymic affect Skin: no rashes, normal color, warm/dry Principal Diagnosis FLORENTIN on CKD, obstructive uropathy, recurrent left inguinal hernia Discharge Exam General: Sitting comfortably in bed, not in distress, on room air HEENT: EOMI, TOVA, MMM Chest: Clear breath sounds bilaterally, no wheezes or crackles CVS: Regular rate and rhythm, normal heart sounds, no murmur Abdomen: Soft, non tender, not distended, normal bowel sounds Neuro: Awake, alert, oriented, conversing well, non focal Extremities: No edema Krause with clear urine Discharge Data Allergies Allergy/AdvReac Type Severity Reaction Status Date / Time No Known Allergies Allergy Unknown Verified 11/06/04 19:57 Consultations 09/28/21 18:13 ED Decision to Admit Stat 09/28/21 18:54 Consult Urology Routine 10/02/21 07:16 Consult Nephrology Routine 10/02/21 18:56 Consult General Surgery Routine Ordered Studies 09/28/21 17:26 CT stones [CT abd pelvis wo con] Stat Laboratory Results WBC 5.02 K/ul (4.8-10.8) 09/30/21 07:44 RBC 3.55 M/uL (4.63-6.08) L 09/30/21 07:44 Hgb 10.4 g/dl (14.0-18.0) L 10/01/21 07:02 Hct 32.6 % (40.1-51.0) L 10/01/21 07:02 MCV 94.9 fL (80.0-100.0) 09/30/21 07:44 MCH 29.3 pg (25.0-34.0) 09/30/21 07:44 MCHC 30.9 g/dL (32.0-36.0) L 09/30/21 07:44 RDW Std Deviation 49.1 fL (36.4-46.3) H 09/30/21 07:44 RDW Coeff of Shine 14.1 % (11.5-14.5) 09/30/21 07:44 Plt Count 219 K/uL (130-400) 09/30/21 07:44 MPV 9.2 fL (9.4-12.4) L 09/30/21 07:44 Immature Gran % (Auto) 0.4 % 09/28/21 16:24 Neut % (Auto) 59.3 % 09/28/21 16:24 Lymph % (Auto) 25.0 % 09/28/21 16:24 [place] % (Auto) 11.9 % 09/28/21 16:24 Eos % (Auto) 2.6 % 09/28/21 16:24 Baso % (Auto) 0.8 % 09/28/21 16:24 Neut # (Auto) 2.99 K/uL (1.4-6.5) 09/28/21 16:24 Lymph # (Auto) 1.26 K/uL (1.2-3.4) 09/28/21 16:24 [place] # (Auto) 0.60 K/uL (0.24-0.82) 09/28/21 16:24 Eos # (Auto) 0.13 K/uL (0-0.50) 09/28/21 16:24 Baso # (Auto) 0.04 K/uL (0-0.2) 09/28/21 16:24 Immature Gran # (Auto) 0.02 K/uL (0.00-0.02) 09/28/21 16:24 Sodium 136 mmol/L (136-145) 10/03/21 07:44 Potassium 4.8 mmol/L (3.5-5.1) 10/03/21 07:44 Chloride 107 mmol/L (98-107) 10/03/21 07:44 Carbon Dioxide 23 mmol/L (21-32) 10/03/21 07:44 Anion Gap 6 (3-11) 10/03/21 07:44 BUN 43 mg/dl (6-23) H 10/03/21 07:44 Creatinine 3.43 mg/dl (0.6-1.4) H 10/03/21 07:44 Est Cr Clr Drug Dosing 22.6 ml/min 10/03/21 07:44 Est GFR ( Amer) 20.1 ml/min 10/03/21 07:44 Est GFR (Non-Af Amer) 17.3 ml/min 10/03/21 07:44 BUN/Creatinine Ratio 12.5 (10-20) 10/03/21 07:44 Glucose 86 mg/dl (70-99(Fasting)) 10/03/21 07:44 Calcium 9.2 mg/dl (8.5-10.1) 10/03/21 07:44 Magnesium 1.8 mg/dl (1.7-2.4) 10/02/21 05:58 Total Bilirubin 0.5 mg/dl (0.2-1.0) 09/28/21 16:24 AST 16 U/L (13-39) 09/28/21 16:24 ALT 9 U/L (7-52) 09/28/21 16:24 Alkaline Phosphatase 45 U/L (34-104) 09/28/21 16:24 Total Protein 7.7 gm/dl (6.0-8.3) 09/28/21 16:24 Albumin 4.3 gm/dl (3.4-5.0) 09/28/21 16:24 Globulin 3.4 gm/dl (2.5-4.0) 09/28/21 16:24 Albumin/Globulin Ratio 1.3 (0.9-2) 09/28/21 16:24 Lipase 56 U/L (11-82) 09/28/21 16:24 Prostate Specific Ag 2.041 ng/ml (0-4) 09/29/21 05:32 Urine Color Yellow 10/02/21 20:45 Urine Appearance Clear (Clear) 10/02/21 20:45 Urine pH 5.5 (4.5-7.5) 10/02/21 20:45 Ur Specific [place] 1.007 (1.000-1.030) 10/02/21 20:45 Urine Protein 1+ (Negative) H 10/02/21 20:45 Urine Glucose (UA) Negative (Negative) 10/02/21 20:45 Urine Ketones Negative (Negative) 10/02/21 20:45 Urine Blood 2+ (Negative) H 10/02/21 20:45 Urine Nitrite Negative (Negative) 10/02/21 20:45 Urine Bilirubin Negative (Negative) 10/02/21 20:45 Urine Urobilinogen Negative (Negative) 10/02/21 20:45 Ur Leukocyte Esterase Negative (Negative) 10/02/21 20:45 Urine WBC (Auto) 1-5 /hpf (0-5) 10/02/21 20:45 Urine RBC (Auto) 0-4 /hpf (0-4) 10/02/21 20:45 U Hyaline Cast (Auto) 0 /lpf (0-5) 10/02/21 20:45 U Epithel Cells (Auto) 5-10 /lpf (0-5) H 10/02/21 20:45 Urine Bacteria (Auto) Negative (Negative) 10/02/21 20:45 SARS-CoV-2, RNA, NAAT NEGATIVE (NEGATIVE) 09/28/21 19:35 Impressions Abdomen/Pelvis CT 09/28/21 17:26 CT abd pelvis wo con CLINICAL HISTORY: abd pain COMPARISON STUDY: 10/19/2016 CT DOSE: 414.78 mGy.cm TECHNIQUE: Standard CT of the Abdomen and Pelvis was performed without IV contrast. The patient did not receive oral contrast. A dose lowering technique was utilized adhering to the principles of ALARA. FINDINGS: Lung base: The lung bases are clear. Abdominal cavity: There is no evidence for abdominal mass, adenopathy or ascites. Liver: The liver is homogeneous in attenuation on these limited noncontrast images.. Spleen: The spleen is homogeneous in attenuation on these limited noncontrast images. Pancreas: The pancreas is homogeneous in attenuation on these limited noncontrast images. Gall Bladder: The gallbladder is well distended with no evidence for cholelithiasis, wall thickening or pericholecystic edema.. Adrenal glands: The adrenal glands are normal in size and attenuation on these limited noncontrast images. Kidneys: There is renal cortical atrophy present bilaterally. There is mild to moderate bilateral hydronephrosis and hydroureter with no evidence for renal or ureteral calculi. This most likely physiologic with distention of the urinary bladder present. Bowel: The bowel loops are normally placed within the abdomen and pelvis without evidence for dilatation or obstruction. There is no evidence for mass lesion. There is mild sigmoid diverticulosis without evidence for diverticulitis. There are no inflammatory changes present. There is no evidence for free air. There is a normal appendix in the right lower quadrant. Bladder: There is distention of the urinary bladder with no evidence for focal bladder wall thickening, calculus or diverticulum. : There is no evidence for pelvic mass or adenopathy. The prostate is mildly to moderately enlarged encroachment upon the floor the bladder. Vasculature: There is no evidence for focal aneurysmal dilatation of the abdominal aorta. Atherosclerotic calcification is present. Osseous structures: There is no acute osseous pathology. Degenerative changes are seen within the spine. IMPRESSION: 1. Bilateral renal cortical atrophy with mild to moderate hydronephrosis and hydroureter bilaterally. This is most likely chronic and physiologic in nature due to distention of the urinary bladder. There are no renal, ureteral or bladder calculi 2. No other evidence for acute intra-abdominal or pelvic abnormality on these limited noncontrast images. 3. Additional nonacute findings are delineated above. ACT 112: Negative or not required by law. Electronically signed by: Sharif Will M.D. 09/28/2021 6:05 PM KUB X-Ray 10/02/21 18:37 XR KUB/Abdomen 1 view CLINICAL HISTORY: gas, HB, and L inquinal pain all w/ po intake TECHNIQUE: 1 view of the abdomen was obtained. Comparison: Comparison is made to CT abdomen pelvis 09/28/2021 FINDINGS: Lung bases are unremarkable. Degenerative changes are seen in the visualized skeleton. The bowel gas pattern is nonobstructive. A moderate amount of stool is noted within the large bowel. IMPRESSION: Nonobstructive bowel gas pattern. ACT 112: Negative or not required by law. Electronically signed by: Jason Martinez M.D. 10/03/2021 8:05 AM Hospital Course (1) Acute kidney injury: (2) Hydronephrosis: (3) Abdominal pain: (4) Hypothyroidism: (5) Hyperlipidemia: (6) Hypertension: Plan Patient is a 66 yr male with H/O hypothyroidism, hyperlipidemia, prediabetes, ZULMA and other medical problems listed below who presented to the ED with lower abdominal and groin pain over the past few days 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 He was placed on krause and was evaluated by urology and nephrology. However, his Cr has plateaued at 3.3-3.4. CT reviewed, discussed with nephro- he will need closer OP monitoring. Likely has CKD from the chronic obstruction, can not say how much it might improve further. He will be discharged on krause for bladder decompression and follow up with uro for cystoscopy and TURP. He has been started on flomax and proscar. Upon further review, he has had ongoing left inguinal pain for past 4 months at site of prior herniarepair. Discussed with Dr Young who reviewed the CT again with a different radiologist and noted to have recurrent left inguinal hernia with sigmoid incarceration but did not recommend immediate surgery with stability and no concerning symptoms currently. Recommended followup in 1-2 weeks. Patient and family were very stressed about the insurance and medical bills/coverage. Seen by CM for the same. Comfortable and stable for discharge. Discharge recommendations reviewed with patient and at bedside. FLORENTIN on CKD likely due to obstructive uropathy due to chronic KATE/enlarged prostate --CT abd/pelvis with bilateral renal cortical atrophy with mild to moderate hydronephrosis and hydroureter bilaterally. This is most likely chronic and ph ysiologic in nature due to distention of the urinary bladder. There are no renal, ureteral or bladder calculi --Baseline Cr of 0.9-1, last one was Feb 2021. - Renal function improved but plateaued now at 3.3-3.4- Cr on admission 4.6->4.1->3.8->3.4->3.3->3.4 - Seen by nephro and recommendations noted as below and discussed with patient - No NSAIDs now or at d/c -recommend no more than average 70 gm daily protein intake and <2 gm daily sodium diet; favor also plant based over processed foods/animal products diet all to promote renal longevity at d/c; low K or low phos diet not necessarily indicated at this time -hospital discharge appt with Jonathan or Chandra in [place] 2-4 wks after hospital discharge -weekly bmp and phos, albumin, hgb to be ordered by neph RN until f/u in clinic up to 4 wks -d/c on 5 mg amlodipine not 10 mg Bladder outlet obstruction/BPH - Continue Krause catheter for at least 7-10 days for bladder decompression and max drainage- continue until seen by uro at the office - Follow with uro as OP for cysto and TURP. - Continue tamsulosin, finasteride - PSA:2.04 Recurrent left inguinal hernia- seen by Dr Young. Has left inguinal hernia with sigmoid incarceration but no need for immediate surgery- recommended OP follow up in 1- 2 weeks to discuss. Consider inguinal truss. No strenuous activity/exercise. Hypothyroidism: Continue levothyroxine Hypertension: Discharged on norvasc 5 mg per nephro. F/u as OP for further medication titration as needed. 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, Left inguinal hernia Activity: Resume your previous activity Non-emergency contact: Primary Care Provider, Surgeon and Activities Coordinator Call non-emergency contact if: you have any medication questions, your symptoms worsen, your pain is not controlled and you have a fever Follow-up/Referrals: Adilson Young, [Surgeon] - (Please call to schedule follow up in clinic with the surgeon within 2 weeks) Omari Madrigal MD [Physician] - Yolanda Artis MD, PhD [Physician] - (Date & Time 11/24/2021 9:00 AM Provider Wendy Hanson MD Department Nephrology, [facility] ) Amauri Oakes MD [Primary Care Provider] - (Date & Time 10/10/2021 2:40 PM Provider Amauri Oakes MD Department Family Practice [facility] ) Diet: Regular and Low Sodium (2gm) Addtl Attending Provider Instructions: Continue flomax and proscar for your prostate enlargement Continue norvasc for your blood pressure. You might need higher dose if your blood pressure continues to stay high Please get repeat blood work as suggested by kidney doctors (weekly BMP, phosphorus, albumin, hemoglobin) Follow kidney diet. Kidney doctors recommend no more than average 70 gm daiy protein intake and less than 2 gm daily sodium; favor also plant based over processed foods/animal products diet all to promote renal longevity at discharge; low potassium or low phosphorus diet not necessarily indicated at this time Do not take over the counter pain medications like advil, motrin, naproxen etc. Tylenol is okay. Please see the urologist for further management of your prostate issues. You do have left inguinal hernia for which the surgeon recommends inguinal truss for now followed by surgery down the road. Please see him in the office in the next 1-2 weeks. No strenuous activity, exercise etc. If you have severe left inguinal pain with nausea, vomiting or signs of obstruction, please come back to the surgery in which case you might need immediate surgery. Follow with your family doctor, urology, kidney doctor and surgeon Pending Studies at Discharge: No Stand-Alone Forms: My [employer], Smoking Cessation Medications and DC Order Prescriptions: New amlodipine [Norvasc] 5 mg Tablet 5 mg PO QAM Qty: 30 0RF tamsulosin 0.4 mg Capsule 0.4 mg PO HS Qty: 30 0RF finasteride [Proscar] 5 mg Tablet 5 mg PO QAM Qty: 30 0RF Continued levothyroxine 137 mcg tablet 137 mcg PO DAILY Discharge Orders: Discharge Order (Routine); Ordered 10/03/21 Ordered By: Francis Woodward Admission Data Admit Date/Time: 09/28/21 18:52 Attending Provider: Francis Woodward Admit Provider: Jamal Arenas Primary Care Provider: Amauri Oakes Other Providers: Jamal Arenas ; Omari Madrigal ; Yolanda Artis ; Adilson Young Other Interventions: Discharge Summary Assessment (RN) Last Done: 10/03/21 13:44
== END 2021-10-03 14:32 | disposition home or self-care (01) | DRG 684 ==
LOC: ED 16:05 → SUATTDRO 18:52 → EDINP 18:52 → 2N 09-29 16:55